=== PATIENT | female | born 1965 | race Caucasian/White ===

== ENCOUNTER 2017-03-28 07:43 | Inpatient (IN) | payer BC ==
[2017-03-28] MEDS ORDERED: NS 1,000 ML IV ONE ×3 (07:55→08:18)
--- NOTE | 2017-03-28 08:04 | EDPHY ---
H & P Time Seen by Provider: 03/28/17 07:55 HPI/ROS: CHIEF COMPLAINT: Hypotension HISTORY OF PRESENT ILLNESS: The patient is a 51-year-old female with a history of pancreatic cancer with a biliary stent followed at the [facility]. She is currently undergoing chemotherapy with Dr. Birch. She was found by her this morning after having gone to the bathroom lying on the floor with feces on her legs and confused. She had a thready pulse and EMS was called. On arrival the patient's blood pressure for EMS was 78/54 heart rate was 110. They giving fluids and brought her here. Here she is answering all questions appropriately and is oriented x3. She states that she had a mild sore throat and chills last night. Her arrived and states that he had little bit of a flu like illness over the last few days. She also complained of a mild headache last night but does not have one today. No history of cardiac disease. She has not had a fever. Her states that her biliary stent has caused sepsis twice before. The most recent episode was 5 weeks ago. She completed oral antibiotics at home which we think are Levaquin. REVIEW OF SYSTEMS: Constitutional: See HPI EENTM: denies: blurred vision, double vision, nose congestion Respiratory: denies: cough, shortness of breath Cardiac: denies: chest pain, irregular heart rate, lightheadedness, palpitations Gastrointestinal/Abdominal: denies: abdominal pain, diarrhea, nausea, vomiting, blood streaked stools Genitourinary: denies: dysuria, frequency, hematuria, pain Musculoskeletal: denies: joint pain, muscle pain Skin: denies: lesions, rash, jaundice, bruising Neurological: Mild headache last night denies: numbness, paresthesia, tingling , dizziness, weakness Hematologic/Lymphatic: denies: blood clots, easy bleeding, easy bruising Immunologic/allergic: denies: HIV/AIDS, transplant EXAM: GENERAL: Lethargic and slightly pale, mentating normally, hypotensive HEAD: Atraumatic, normocephalic. EYES: Pupils equal round and reactive to light, extraocular movements intact, sclera anicteric, conjunctiva are normal. ENT: TMs normal, nares patent, oropharynx clear without exudates. Moist mucous membranes. NECK: Normal range of motion, supple without lymphadenopathy or JVD. LUNGS: Breath sounds clear to auscultation bilaterally and equal. No wheezes rales or rhonchi. HEART: Regular rate and rhythm, slightly tachycardic without murmurs, rubs or gallops. ABDOMEN: Soft, nontender, normoactive bowel sounds. No guarding, no rebound. No masses appreciated. BACK: No CVA tenderness, no spinal tenderness, step-offs or deformities EXTREMITIES: Stool on legs, Normal range of motion, no pitting or edema. No clubbing or cyanosis. NEUROLOGICAL: Cranial nerves II through XII grossly intact. Normal speech, normal gait. 5/5 strength, normal movement in all extremities, normal sensation PSYCH: Fatigued, SKIN: Warm, dry, normal turgor, no visible rashes or lesions. Source: Patient, Family, EMS Exam Limitations: No limitations - Medical/Surgical History Hx Asthma: No Hx Chronic Respiratory Disease: No Hx Diabetes: No Hx Cardiac Disease: No Hx Renal Disease: No Hx Cirrhosis: No Hx Alcoholism: No Other PMH: Pancreatic cancer, biliary stent - Family History Significant Family History: No pertinent family hx - Social History Smoking Status: Never smoked Alcohol Use: Sober Drug Use: None Constitutional: Initial Vital Signs Temperature (C) 37 C 03/28/17 07:49 Heart Rate 102 H 03/28/17 07:49 Respiratory Rate 16 03/28/17 07:49 Blood Pressure 55/41 L 03/28/17 07:49 O2 Sat (%) 100 03/28/17 07:49 O2 Delivery Mode Nasal Cannula O2 (L/minute) 1 Allergies/Adverse Reactions: No Known Drug Allergies Allergy (Verified 03/28/17 08:20) Home Medications: Medication Instructions Recorded Aspirin [Aspirin 81mg (*)] 81 mg PO DAILY 03/28/17 Cholecalciferol Vit D3 [Vitamin D3 5,000 units PO DAILY 03/28/17 (*)] Dexamethasone [Decadron 4 MG (*)] 4 mg PO BID 03/28/17 Diphenoxylate HCl/Atrop Sulf 1 tab PO QID PRN 03/28/17 [Lomotil Tab (*)] Docusate Sodium [Colace 100 MG (*)] 100 mg PO DAILY PRN 03/28/17 Gabapentin [Neurontin 300 MG (*)] 300 mg PO TID 03/28/17 Granisetron [Sancuso] 1 each TD Q7D 03/28/17 LORazepam [Ativan (*)] 0.5 mg PO HS 03/28/17 LORazepam [Ativan (*)] 0.5 mg PO Q6-8PRN PRN 03/28/17 Lipase/Protease/Amylase [Katie Engel 2 each PO QID 03/28/17 36,000 Units Capsule] Lipase/Protease/Amylase [Katie Engel 3 each PO TIDMEAL 03/28/17 36,000 Units Capsule] Loperamide HCl [IMODIUM A-D] 5 ml PO DAILY PRN 03/28/17 Magic Mouth Wash 10 ml PO QID 03/28/17 Nystatin Susp [Mycostatin Oral 5 ml PO QID 03/28/17 Liquid] Prochlorperazine Maleate 10 mg PO Q6HRS PRN 03/28/17 [Compazine 10mg (*)] morphINE SR [Ms Contin/Oramorph 15 15 mg PO BID 03/28/17 mg (*)] oxyCODONE IR [Oxycodone Ir (*)] 5 mg PO DAILY PRN 03/28/17 Medical Decision Making - Diagnostics EKG Interpretation: An EKG obtained and was read and documented in trace view. Please see trace view for full reading and report. Sinus tachycardia slight ST depression in inferior leads A repeat EKG obtained and was read and documented in trace view. Please see trace view for full reading and report. Sinus rhythm, no acute ischemic changes Procedures: Procedure: Central line placement. Indication: Hypotension, severe sepsis. Verbal informed consent was obtained, with the risks explained to include but not be limited to bleeding, infection, and collapsed lung. A timeout was observed and patients identity and correct procedure location confirmed. Full maximal sterile barrier technique was uses including cap, gown, sterile gloves, large sheet, hand washing and chlorhexidine prep. The area anesthetized with 1 % lidocaine. The left IJ was punctured with a 19 gauge finder needle, under ultrasound guidance, then a triple-lumen was placed using standard Seldinger technique. There were no complications. Blood return low pressure, dark blood. Patient tolerated procedure well. CXR results: Curled an subclavian. X-ray was interpreted by myself. The procedure was performed by myself. Procedure: Central line placement. Indication: Hypotension. Verbal informed consent was obtained, with the risks explained to include but not be limited to bleeding, infection, and collapsed lung. A timeout was observed and patients identity and correct procedure location confirmed. Full maximal sterile barrier technique was uses including cap, gown, sterile gloves, large sheet, hand washing and chlorhexidine prep. The area anesthetized with 1 % lidocaine. The left subclavian was punctured with a 19 gauge finder needle, then a triple-lumen was placed using standard Seldinger technique. There were no complications. Blood return low pressure, dark blood. Patient tolerated procedure well. CXR results: Central line in place. X-ray was interpreted by myself. The procedure was performed by myself. ED Course/Re-evaluation: 8:30 a.m. the patient remains hypotensive after fluid bolus and 56/42. Her heart rate has improved from 110 to 98. We will continue to bolus fluids. I will also start her on Levophed and declared severe sepsis and sent a repeat lactate. The patient has a port in place. We spoke with the ICU and verified that this is safe to use for pressors. At this point patient and family is declining central line. 9:30 a.m. the patient's central line curved into her subclavian. I will remove it. Family is not sure if they want another. Dr. Aguilar is talking to them now. 9:50 a.m. the patient's central line was pulled by nursing staff and pressure held. Dr. Aguilar has evaluated the patient agrees with the plan thus far. We do not have an obvious source for infection although we suspect her biliary stent. She does not have elevated liver function tests. 10:14 a.m. while discussing the risks of subclavian central line patient and family decided that they do not want a central line. We had discussed a PICC line with them earlier and they prefer this option. The patient has stabilized to some degree so we will try this Differential Diagnosis: Partial list of the Differential diagnosis considered include but were not limited to; sepsis, urinary tract infection, biliary stent infection and although unlikely based on the history and physical exam, I also considered head injury, acute coronary disease. Critical Care Time: Critical care time spent by me, Dr. Avelar exclusive with this patient was 45 minutes, exclusive of the PA time exclusive of procedures. The organ system that was at risk was cardiovascular and I gave IV fluids, antibiotics, consultations and admission to prevent worsening of the patient's condition - Data Points Laboratory Results: Laboratory Results 03/28/17 08:03 03/28/17 08:03 03/28/17 08:03 Platelet Estimate DECREASED L (ADEQ) Microbiology Results: MICROBIOLOGY 03/28/17 08:03 Blood Blood Culture - Preliminary Gram Neg Robert Lactose Roving Carrier 03/28/17 08:03 Blood Blood Panel (PCR) - Final Klebsiella Pneumoniae Medications Given: Acetaminophen (Tylenol) 650 mg PO Q4HRS PRN PRN Reason: Pain, Mild/Fever, Can Take PO Stop: 09/24/17 09:48 Last Admin: 03/29/17 14:59 Dose: 650 mg Filgrastim-Sndz (Zarxio) 300 mcg SC DAILY AT 2PM RAVEN Stop: 09/24/17 13:59 Last Admin: 03/29/17 14:06 Dose: 300 mcg Gabapentin (Neurontin) 300 mg PO TID RAVEN Stop: 09/24/17 15:59 Last Admin: 03/29/17 16:10 Dose: 300 mg Sodium Chloride (Ns) 1,000 mls @ 150 mls/hr IV CONT RAVEN Stop: 09/24/17 09:59 Last Admin: 03/29/17 14:59 Dose: 1,000 mls Piperacillin/Tazobactam/Dextrose (Zosyn 3.375 Gm (Premix)) 50 mls @ 100 mls/hr IV Q6HRS RAVEN PRN Reason: Protocol Stop: 04/27/17 13:59 Last Admin: 03/29/17 17:07 Dose: 50 mls Norepinephrine/Sodium Chloride (Norepinephrine 8 Mcg/Ml (Premix)) 500 mls @ 0 mls/hr IV CONT RAVEN; Titrate PRN Reason: Protocol Stop: 09/24/17 20:59 Last Admin: 03/29/17 02:39 Dose: 500 mls Loperamide HCl (Imodium) 2 mg PO QID PRN PRN Reason: Diarrhea/Loose Stools Stop: 09/24/17 20:38 Last Admin: 03/29/17 12:42 Dose: 2 mg Lorazepam (Ativan) 0.5 mg PO Q6 PRN PRN Reason: NAUSEA/VOMTING Stop: 09/24/17 14:47 Last Admin: 03/28/17 21:03 Dose: 0.5 mg Miscellaneous Medication (Magic Mouth Wash) 10 ml PO QID [facility] Stop: 09/24/17 15:59 Last Admin: 03/29/17 16:11 Dose: Not Given Miscellaneous Medication (Lipase/Protease/Amylase [Katie Engel 36,000 Units Capsule ]) 3 each PO TIDMEAL RAVEN Stop: 09/25/17 08:59 Last Admin: 03/29/17 12:46 Dose: 3 cap Miscellaneous Medication (Lipase/Protease/Amylase [Creon Dr 36,000 Units Capsule ]) 2 each PO QID PRN PRN Reason: SNACKS Stop: 09/25/17 11:04 Last Admin: 03/29/17 16:11 Dose: 2 cap Miscellaneous Medication (Granisetron [Sancuso]) 1 each TD Q7D [facility] Stop: 09/25/17 11:59 Last Admin: 03/29/17 12:00 Dose: 1 patch Morphine Sulfate (Ms Contin/Oramorph) 15 mg PO BID [facility] Stop: 04/07/17 20:59 Last Admin: 03/29/17 08:09 Dose: 15 mg Nystatin (Mycostatin Oral Liquid) 500,000 unit PO QID [facility] Stop: 04/27/17 17:44 Last Admin: 03/29/17 16:10 Dose: 500,000 unit Discontinued Medications Dexamethasone (Decadron Injection) 10 mg IVP ONCE ONE Stop: 03/28/17 08:49 Last Admin: 03/28/17 09:36 Dose: 10 mg Dexamethasone (Decadron) 4 mg PO BID [facility] Stop: 09/24/17 20:59 Last Admin: 03/29/17 13:19 Dose: Not Given Sodium Chloride (Ns) 1,000 mls @ 0 mls/hr IV ONCE ONE; Wide Open PRN Reason: Protocol Stop: 03/28/17 07:56 Last Admin: 03/28/17 07:55 Dose: 1,000 mls Sodium Chloride (Ns) 1,000 mls @ 0 mls/hr IV ONCE ONE PRN Reason: Wide Open Stop: 03/28/17 08:06 Last Admin: 03/28/17 08:05 Dose: 1,000 mls Sodium Chloride (Ns) 1,000 mls @ 0 mls/hr IV EDNOW ONE; Wide Open PRN Reason: Protocol Stop: 03/28/17 08:19 Last Admin: 03/28/17 08:21 Dose: 1,000 mls Levofloxacin/Dextrose (Levaquin 750 Mg (Premix)) 150 mls @ 100 mls/hr IV EDNOW ONE PRN Reason: Protocol Stop: 03/28/17 09:52 Last Admin: 03/28/17 08:29 Dose: 150 mls Norepinephrine/Sodium Chloride (Norepinephrine 8 Mcg/Ml (Premix)) 500 mls @ 0 mls/hr IV EDNOW ONE; Titrate PRN Reason: Protocol Stop: 03/28/17 08:24 Last Admin: 03/28/17 08:50 Dose: 500 mls Sodium Chloride (Ns) 1,700 mls @ 3,400 mls/hr 30 ml/kg infuse over 30 min ( 1700 ml) IV EDNOW ONE PRN Reason: Protocol Stop: 03/28/17 08:52 Last Admin: 03/28/17 08:58 Dose: Not Given Piperacillin/Tazobactam/Dextrose (Zosyn 3.375 Gm (Premix)) 50 mls @ 100 mls/hr IV EDNOW ONE PRN Reason: Protocol Stop: 03/28/17 09:08 Last Admin: 03/28/17 09:43 Dose: 50 mls Vancomycin/Sodium Chloride (Vancomycin 1 Gm (Premix)) 250 mls @ 250 mls/hr IV Q12H [facility]EN PRN Reason: Protocol Stop: 04/27/17 09:59 Last Admin: 03/29/17 10:43 Dose: Not Given Calcium Gluconate 2 gm/ (Dextrose) 70 mls @ 140 mls/hr IV ONCE ONE Stop: 03/28/17 19:18 Last Admin: 03/28/17 19:47 Dose: 70 mls Miscellaneous Medication (Lipase/Protease/Amylase [Katie Engel 36,000 Units Capsule ]) 2 each PO QID [facility] Stop: 09/24/17 20:59 Last Admin: 03/29/17 05:48 Dose: 2 cap Departure - Departure Disposition: [facility] Inpatient Acute Clinical Impression: Septic shock Condition: Critical
[2017-03-28 08:15] LABS: % IMMATURE GRANULYOCYTES 1.9 % (0.0-1.1); ABSOLUTE IMMATURE GRANULOCYTES 0.02 10^3/uL (0.00-0.10); ABSOLUTE NRBC COUNT 0.02 10^3/uL (0-0.01); ADD DIFF? NO; ADD MORPH? YES; ADD SCAN? NO; ATYPICAL LYMPHOCYTE FLAG 0 (0-99); FRAGMENT RBC FLAG 0 (0-99); HEMATOCRIT 27.4 % (38.0-47.0); HEMOGLOBIN 8.7 g/dL (12.6-16.3); LEFT SHIFT FLG 70 (0-99); LIPEMIA HEMOLYSIS FLAG 80 (0-99); MEAN CELL HEMOGLOBIN CONCENTR. 31.8 g/dL (32.4-36.7); MEAN CELL VOLUME 91.3 fL (81.5-99.8); MEAN PLATELET VOLUME 10.7 fL (8.7-11.7); PLATELET CLUMPS FLAG 20 (0-99); PLATELET COUNT 94 10^3/uL (150-400); RED CELL DISTRIBUTION WIDTH 16.4 % (11.5-15.2)
--- NOTE | 2017-03-28 08:20 | CPEKG ---
Heart Rate: 101 RR Interval: 594 P-R Interval: 120 QRSD Interval: 86 QT Interval: 360 QTC Interval: 467 P [place]: 68 QRS [place]: 27 T Wave [place]: 53 EKG Severity - ABNORMAL ECG - EKG Impression: SINUS TACHYCARDIA EKG Impression: CONSIDER POSTERIOR INFARCT Electronically Signed By: Kolby Avelar 28-Mar-2017 08:45:29
[2017-03-28] MEDS ORDERED: NS 1,700 ML IV ONE (08:23)
[2017-03-28] MEDS ORDERED: NOREPINEPHRINE/NS 500 ML IV ONE (08:23)
[2017-03-28 08:24] LABS: INR 1.49 (0.83-1.16)
[2017-03-28 08:25] LABS: APTT 27.2 SEC (23.0-38.0)
[2017-03-28 08:32] LABS: ANION GAP 9 mEq/L (8-16); CALCIUM 6.8 mg/dL (8.5-10.4); CARBON DIOXIDE 19 mEq/l (22-31); CHLORIDE 107 mEq/L (97-110); GLOMERULAR FILTRATION RATE 59; GLUCOSE 76 mg/dL (70-100); POTASSIUM 3.1 mEq/L (3.5-5.2); SODIUM 135 mEq/L (134-144)
[2017-03-28] MEDS ORDERED: PIPERACILLIN/TAZO 3.375 GM/DEX 50 ML IV ONE (08:39)
[2017-03-28 08:45] LABS: NRBC-AUTO% 1.9 % (0.0-0.2)
[2017-03-28] MEDS ORDERED: DEXAMETHASONE 10 MG/ML VIAL IVP ONE (08:48)
[2017-03-28 09:10] LABS: LACGHOST ORDER
--- NOTE | 2017-03-28 09:12 | CPEKG ---
Heart Rate: 96 RR Interval: 625 P-R Interval: 120 QRSD Interval: 80 QT Interval: 360 QTC Interval: 455 P [place]: 65 QRS [place]: 19 T Wave Raymond: 51 EKG Severity - ABNORMAL ECG - EKG Impression: SINUS RHYTHM EKG Impression: PROBABLE POSTERIOR INFARCT Electronically Signed By: Kolby Avelar 28-Mar-2017 09:45:57
[2017-03-28 09:44] LABS: ALBUMIN 2.2 g/dL (3.5-5.0); BILIRUBIN-CONJUGATED 0.7 mg/dL (0.0-0.5); BILIRUBIN-UNCONJUGATED 0.3 mg/dL (0.0-1.1); TOTAL PROTEIN 3.8 g/dL (6.3-8.2)
[2017-03-28] MEDS ORDERED: ONDANSETRON DISINTEGRATING 4 MG TAB PO PRN (09:49)
[2017-03-28] MEDS ORDERED: ONDANSETRON 4 MG/2 ML VIAL IVP PRN (09:49)
[2017-03-28] MEDS ORDERED: ACETAMINOPHEN 325 MG TAB ONE (10:55)
[2017-03-28] MEDS ORDERED: VANCOMYCIN 1 GM/NS 250 ML BAG IV ONE (11:01)
[2017-03-28] MEDS: VANCOMYCIN HCL/NORMAL SALINE 250 ML IV SCH ×2 (11:08→21:41)
--- NOTE | 2017-03-28 11:57 | GHP ---
[f rep st] HISTORY AND PHYSICAL DATE OF ADMISSION: 03/28/2017 This patient is a 51-year-old female with a history of metastatic pancreatic cancer that was diagnose d in April 2016, secondary to abdominal pain. She has a metal stent in her biliary tree, and is cu rrently receiving FOLFIRI chemotherapy with Dr. Zoran Birch. Her biliary stent was placed at [facility]. The patient has had a couple of episodes over the last month. She had a right upper quadrant pain an d fever, and had been treated with oral levofloxacin, and has improved. The last was a couple of wee ks ago. Yesterday, she had some increased pain in her right upper quadrant, took an oxycodone, which is uncommon for her, and then overnight she recalls feeling very chilled overnight and getting up to go to the bathroom, and then lying down on the floor. Her found her this morning incontinen t of stool, and confused, and brought her in here. Her initial presenting vitals show very low blood pressures of 56/32 with a pulse of greater than 100. She has been afebrile here, although she is wa rm to the touch. The patient said she had been eating and drinking normally prior to overnight. Her last bowel moveme nt was the day prior. She has not had jaundice. There was some discussion. The ER nurse may have n oticed some light-colored stool on her clothes, but has not noticed any tiffany-colored stools or Coca-C henry-colored urine. She has not had any procedures to open up her stent; it was placed, it sounds lik e, shortly after diagnosis. She has not had nausea or vomiting. She does not have chest pain or bindu rtness of breath. She maybe has a degree of urinary frequency and urgency. REVIEW OF SYSTEMS: Complete 10-point review of systems conducted, and negative except as noted in th e HPI. PAST MEDICAL HISTORY: Metastatic pancreatic cancer. ALLERGIES: No known drug allergies. HOME MEDICATION: Her reconciliation is pending, but includes Colace, aspirin, MS Contin, p.r.n. oxyc odone, and outpatient chemotherapy. SOCIAL HISTORY: No tobacco, no alcohol. Lives in [place]. and daughter at the bedside. FAMILY HISTORY: Reviewed and unremarkable. PHYSICAL EXAMINATION: PRESENTING VITALS: Temp 37, blood pressure 55/41, pulse 102, breathing 16 parth es a minute, 100% on 4 L. When I see the patient, her blood pressure is 78/55 and she is mentating a nd alert, and her confirms that her mental status is close to her baseline. It sounds like o n her systolic blood pressures have been running in the 80s since the start of chemotherapy. GENERAL : No acute distress. Chronically ill appearing. HEENT: Sclerae anicteric. Oropharynx clear. Muc ous membranes are dry. NECK: Supple without lymphadenopathy or JVD. LUNGS: Clear to auscultation anterolaterally. HEART: S1, S2. Tachycardic. ABDOMEN: Soft. There is no rebound or guarding. B owel sounds are hypoactive, but present. There is a Castañeda sign. LOWER EXTREMITIES: Without edema. Calves are nontender. SKIN: Without rash. NEUROLOGIC: Grossly nonfocal. IMAGING STUDIES: Chest x-ray, interpreted by me: This shows atelectasis versus questionable infiltr ate; favor atelectasis. EKG, interpreted by me: It shows sinus at 101 with normal axis and intervals. There is early R-wave progression. There is also an S wave in lead V1. We have no prior for comparison. LABORATORY DATA: Sodium 135, potassium 3.1, chloride 107, bicarb 19, BUN 30 creatinine 1.0, glucose 76, calcium 6.8, which is low. Bilirubin is 1.08; conjugated, it is slightly high at 0.7. AST is 40 , ALT is 85, alk phos is 100. The following numbers are in our system: Her bilirubin has been highe r, but almost a year ago. Albumin is low at 2.2. Venous lactate initially 3.1; it is down to 2.3; r epeat is pending. INR is 1.5. White count is 1, and this is down from 5 five days ago. She is neut ropenic with a neutrophil count of 300. Platelet count is 94. Again, this is new. I discussed the case with Dr. Kolby Avelar. ASSESSMENT AND PLAN: This is a 51-year-old female with metastatic pancreatic cancer, who presents wi th apparent sepsis. 1. Sepsis. The patient has neutropenia. Potential source is right upper quadrant. And hypotension , elevated venous lactate. She received volume resuscitation. She is on phenylephrine. We will fol low. The presumed source is the right upper quadrant. 2. Question of cholangitis. The patient has a history of cholangitis and a Castañeda sign. However, h er relatively normal LFTs argue against significant biliary obstruction, which is typically the begin bernardo of sepsis. We will treat her with vancomycin and Zosyn, and perform right upper quadrant imagin g. I will ask Gastroenterology to see her to render an opinion about the likelihood of cholangitis. 3. Metastatic pancreatic cancer. Certainly this will interrupt her chemotherapy. Will let Oncology know she is here, and they will follow along with you while she is here. 4. Neutropenia, presumed secondary to sepsis and/or chemotherapy. Will follow. 5. Question of pulmonary embolism. This presentation could be significant with a massive pulmonary embolism. I think a CT scan of the chest is indicated once more reliable central access has been obt ained. 6. Hypotension. This is presumed secondary to sepsis. We will work to rule out pulmonary embolism. 7. Thrombocytopenia. We will hold her aspirin. Again, sepsis versus chemotherapy. To rule out dis seminated intravascular coagulation. I will check a fibrinogen level. 8. Prophylaxis. Pharmacologic prophylaxis currently contraindicated, given thrombocytopenia and mil d coagulopathy. 9. Code status: Full. 10. Disposition: Intensive care unit. /[id number]/MODL
[2017-03-28] MEDS ORDERED: FILGRASTIM-SNDZ 300 MCG/0.5 ML SYR SC SCH (12:30)
--- NOTE | 2017-03-28 13:22 | GCON ---
[f rep st] CONSULTATION ONCOLOGY CONSULTATION DATE OF CONSULTATION: 03/28/2017 HISTORY OF PRESENT ILLNESS: The patient is a pleasant 51-year-old female who was diagnosed with meta static pancreatic carcinoma in April 2016. She had been treated initially with palliative FOLFIRIN OX. Due to multiple issues, her oxaliplatin has been held beginning in November of this year. Her most r ecent dose of treatment (5-fluorouracil, leucovorin, irinotecan) was given on March 23, 2015. Pattie turcios did not receive growth factor medication at that time. The patient has had an initial response to therapy. She has an indwelling biliary stent which was pl aced at the time of her diagnosis in April of last year. She has had approximately 3 episodes of c holangitis treated in the outpatient setting with Jarek. The patient evidently became confused last evening and was brought to the emergency department this m orning by her parents. When seen this afternoon, she is feeling much better and more coherent. She denies abdominal pain. She did report having shaking chills last evening. She reports mild right up per quadrant pain. An ultrasound done today reveals diffuse gallbladder wall thickening with pericho lecystic fluid suggesting acalculous cholecystitis. There is no evidence of intrahepatic ductal dila tation and her biliary stent is visualized. Hepatic metastases are present. She has been started on IV antibiotic therapy and is being given fluid resuscitation. Surgical consu ltation has been requested and she is due for a HIDA scan later today. PAST MEDICAL HISTORY: Essentially unremarkable prior to her diagnosis of pancreatic cancer. PAST SURGICAL HISTORY: Remarkable only for wisdom tooth extraction and liver biopsy. Also, biliary stent placement April 2017. REVIEW OF SYSTEMS: As above. PHYSICAL EXAM: GENERAL: Patient is resting comfortably in bed. She is in no acute distress. There is no evidence of scleral icterus. HEART: Regular, without murmur. LUNGS: Clear bilaterally. AB DOMEN: Soft. There is minimal right upper quadrant tenderness without guarding or rebound. No palp able mass. No distention. Bowel sounds normoactive. No extremity swelling or edema. Patient alert , oriented, and appropriate. Gallbladder imaging results as outlined above. Chest x-ray reveals no infiltrate. LABORATORY STUDIES: White count 1.03, hemoglobin 8.7, hematocrit 27.4, platelet count is 94,000, abs olute neutrophil count is 340. Sodium 135, potassium 3.1, chloride 107, bicarb 19, BUN 30, creatinin e 1.0, bilirubin 1.0, AST 40, ALT 85, alk phos 100. IMPRESSION: 1. Metastatic pancreatic carcinoma (patient currently receiving 5-fluorouracil, leucovorin, irinotec an, last dose given March 23, 2017). 2. Indwelling biliary stent secondary to #1. 3. Episodes of recurrent cholangitis treated with outpatient Levaquin therapy. 4. Probable acalculous cholecystitis. 5. Febrile neutropenia. 6. Chemotherapy-induced anemia. The patient has been admitted to the hospital with biliary sepsis. It would appear that the source o f her sepsis is from the gallbladder as opposed to recurrent cholangitis. I suspect the lack of posi tive Castañeda sign may be due in part to her low white count and an impaired systemic inflammatory resp onse. She has a HIDA scan scheduled for later today and a surgical consultation has been requested. She will be treated with broad-spectrum antibiotics. She is receiving aggressive IV fluid resuscitat ion. Clinically, she has improved significantly since admission. Given that she has been admitted with pr esumed sepsis and is neutropenic, I will start her on G-CSF therapy 300 mcg daily until her neutrophi l count is greater than 1500. Her therapy will be placed on hold. I will notify Dr. Birch of her admission. Our service will co liliya to follow her. The above plan was discussed with the patient and her family members as well a s nursing and Dr. Aguilar of the hospitalist service. Total time for today's visit was approximately 40 minutes, of which greater than 50% was spent in cou nseling and care coordination. /[id number]/MODL
--- NOTE | 2017-03-28 15:41 | GCON ---
[f rep st] CONSULTATION REFERRING PHYSICIAN: Jordan Aguilar MD REASON FOR CONSULTATION: Possible biliary sepsis. HISTORY OF PRESENT ILLNESS: Patient is a pleasant 51-year-old female with a history of metastatic pa ncreatic cancer diagnosed back in April of 2016. She has metal stents placed in her biliary tree b y the interventional endoscopist done at [place]. She has had a number of infections in the stent s, and has been treated with oral antibiotics according to her and her . Last night, she was not feeling very well. She took oxycodone, it made her feel somewhat worse. She remembers having si gnificant chills and rigors where her teeth were chattering when she was coming to bed. This morning , her found her on the floor of the bathroom incontinent and confused. She was brought to [facility], and she had significant hypotension with a blood pressure of 56/32. Prior to yesterday s he was feeling pretty well. She was eating normally without any significant pain. She did not have any fevers, chills, or sweats until last night. She was not jaundiced. She did not have any increas ed abdominal pain. She has been treated with a sepsis protocol. This morning she is much improved. She does have mild abnormal labs with an ALT of 85, but her other liver enzymes are normal, and she does not have any increased bilirubin. She does have tenderness in the right upper quadrant, and her sepsis is likely thought of a biliary source. A sonogram performed this morning suggests possible c holecystitis with diffuse gallbladder wall thickening and some fluid around it. There is no intrahep atic biliary dilatation. They do notice the biliary stent and hepatic mets. I am now called to help evaluate possible biliary sepsis. PAST MEDICAL/SURGICAL HISTORY: She has had the stents placed and a port placed. She has metastatic pancreatic cancer. No other surgeries. FAMILY HISTORY: Denies any family history of cancers. Does not seem to be a cancer gene syndrome in her family. MEDICATIONS: At home include vitamin D, Creon, oxycodone, Ativan, dexamethasone, Colace, MS Kia, and she has outpatient chemotherapy. In hospital her medications are Tylenol p.r.n., Zarxio 300 mcg subcu at 2 p.m., Dilaudid p.r.n., MS Penny ontin 15 mg p.o. b.i.d., Zofran p.r.n., Zosyn 3.375 g IV q.6 hours, vancomycin 1 g IV q.12. She did get Decadron 20 mg IV push this morning at 8:48. She had Levaquin dose earlier. She was on norepine phrine initially, but she is not on it any more. ALLERGIES: No known drug allergies. SOCIAL HISTORY: She never smoked. She drinks alcohol very infrequently. She has not had alcohol fo r over a year. REVIEW OF SYSTEMS: A complete review of systems was performed, is negative other than noted in the H PI. PHYSICAL EXAMINATION: GENERAL: Well developed, ill female lying in her bed. She appears comfortabl e. VITAL SIGNS: Blood pressure is 80/55, pulse is 110. She has 16 respiratory rate. She is 98% on 1 L. Temperature is 38.5. EYES: Anicteric. LILA. EOMI. MOUTH: No lesions. NECK: Supple. No JVD. No lymphadenopathy. BACK: No spine tenderness. No CVA tenderness. LUNGS: Clear to auscult ation. CARDIAC: S1, S2. Tachy, regular rhythm. I do not appreciate rubs or gallops. ABDOMEN: Hira wel sounds are decreased frequency, normal pitch. Abdomen soft with tenderness in the right upper qu adrant. Minimal guarding. No rebound. EXTREMITIES: No cyanosis, clubbing. NEUROLOGIC: Cranial n erves intact. Nonfocal. SKIN: No stigmata of advanced liver disease. No rashes. LABORATORY DATA: From today: Sodium 135, potassium 3.1, chloride 107, bicarb 19, BUN 30, creatinine 1.0, calcium 6.8. Total bilirubin 1.0, AST 40, ALT 85, meryl phos 100, total protein 3.8, albumin 2. 2. WBC 1.03, hemoglobin 8.7, hematocrit 27.4, platelet count 94,000. Her pro time is 18.0, INR is 1 .49, PTT is 27.2. A chest x-ray performed at 7:55 this morning showed mild central perihilar bronchial wall thickening with some questionable left basilar subsegmental atelectasis versus minimal infiltrate. Abdominal ultrasound from 9:47 this morning: Diffuse gallbladder wall thickening with pericholecysti c fluid suggesting acalculous acute cholecystitis, biliary stent without definite intrahepatic biliar y ductal dilatation, hepatic metastases, no hydronephrosis. ASSESSMENT: 1. Presumed sepsis, unclear source, likely biliary, either occluded stent with ascending cholangitis or cholecystitis; I favor the former. 2. Metastatic pancreatic cancer. 3. Biliary stents for pancreatic cancer. 4. Hypotension related to sepsis. 5. Abnormal imaging study, possible acalculous cholecystitis. 6. Chemotherapy-induced anemia, thrombocytopenia, and leukopenia. RECOMMENDATIONS: 1. Continue broad-spectrum antibiotics. 2. Order HIDA scan which should evaluate both possible stent occlusion as well as acalculous cholecy stitis. 3. Continue supportive care. 4. Agree with G-CSF therapy. 5. Further recommendations to follow up with the above and clinical course. I do think that the patient's infection is likely biliary source. I think an ascending cholangitis f rom malfunctioning stent is more likely. The gallbladder could be dilated related to malfunctioning stents. Interestingly, her only mild LFT abnormalities are ALT. I would expect significantly more a bnormalities with occluded stents. Nevertheless, I think that is still what is occurring. If the HID A scan is read as normal with both small bowel opacification and gallbladder opacification, we will n eed to look for other sources. It still is possible that the stent is occluded despite an opacificat ion of the small bowel partially occluded. Thank you very much for allowing me to participate in patient's health care. Do not hesitate to call me with any questions. Copy requested to: Dr. Birch /[id number]/MODL
[2017-03-28] MEDS: FILGRASTIM-SNDZ 300 MCG/0.5 ML SYR SC SCH (16:41)
[2017-03-28] MEDS: PIPERACILLIN/TAZO 3.375 GM/DEX 50 ML IV SCH ×2 (16:46→17:27)
[2017-03-28] MEDS: GABAPENTIN 300 MG CAP PO SCH ×2 (16:54→20:34)
[2017-03-28 17:09] LABS: IONIZED CALCIUM 1.03 MMOL/L (1.12-1.30)
[2017-03-28] MEDS: NYSTATIN SUSP 500000 UNIT/5 ML UDCUP PO SCH ×2 (18:28→20:34)
[2017-03-28] MEDS ORDERED: CALCIUM GLUCONATE 2 GM in D5W 50 ML IV ONE (18:49)
[2017-03-28 19:46] LABS: MIXED VENOUS O2 SATURATION 95 % (65-75)
[2017-03-28 20:23] LABS: ANION GAP 9 mEq/L (8-16); CALCIUM 7.3 mg/dL (8.5-10.4); CARBON DIOXIDE 17 mEq/l (22-31); CHLORIDE 115 mEq/L (97-110); CREATININE 0.9 mg/dL (0.6-1.0); GLOMERULAR FILTRATION RATE > 60; GLUCOSE 157 mg/dL (70-100); POTASSIUM 4.2 mEq/L (3.5-5.2); SODIUM 141 mEq/L (134-144)
[2017-03-28] MEDS: Lipase/Protease/Amylase [Creon Dr 36,000 Units Capsule] PO SCH ×2 (20:33)
[2017-03-28] MEDS: morphINE SR 15 MG TAB PO SCH (20:34)
[2017-03-28] MEDS: DEXAMETHASONE 4 MG TAB PO SCH (20:34)
[2017-03-28] MEDS: LOPERAMIDE HCL 2 MG CAP PO PRN (21:03)
[2017-03-28] MEDS: LORazepam 0.5 MG TAB PO PRN (21:03)
[2017-03-28] MEDS: ACETAMINOPHEN 325 MG TAB PO PRN (23:32)
--- NOTE | 2017-03-28 23:58 | GCON ---
[f rep st] CONSULTATION DATE OF CONSULTATION: 03/28/2017 REFERRING PHYSICIAN: Jordan Aguilar MD REASON FOR CONSULTATION: Acute cholecystitis. HISTORY OF PRESENT ILLNESS: The patient is a 51-year-old woman, who has a history of metastatic panc reatic cancer that was diagnosed in April 2016. She is treated with by Dr. Zoran Birch, as well a s by Dr. Amarilys Gruber at the pancreatic team at the [facility]. She has a metal stent in her biliar y tree, which is not been changed. She has been receiving chemotherapy and been doing fairly well. She reports that over the past month she has had several episodes of right upper quadrant pain and fe saroj. She has responded well to antibiotics. She was found this morning incontinent of stool, [facility] ed, and presented with sepsis. She received her last chemotherapy on . She is neutropenic. She had an ultrasound obtained which showed a thickened gallbladder with pericholecystic fluid witho ut biliary ductal dilatation. She had a HIDA scan which showed the biliary stent is open and acute c holecystitis. Her liver function tests are improved compared to earlier this month. PAST MEDICAL HISTORY: Metastatic pancreatic cancer. SOCIAL HISTORY: She lives in [place]. No tobacco or alcohol use. ALLERGIES: No known drug allergies. HOME MEDICATION: Reconciled on [employer]. FAMILY HISTORY: Not contributing to acute cholecystitis. REVIEW OF SYSTEMS: Weakness, alternating constipation/diarrhea. Otherwise, 10-point review of syste ms negative. PHYSICAL EXAMINATION: VITAL SIGNS: 37.5, 113, 81/54, 16, 94% on 1 L. GENERAL: Pleasant, well-nour ished woman. She appears in mild distress. She appears weak. She is cooperative. NEURO: [place] g well. HEENT: Normocephalic. No gross hearing deficits. Mucous membranes moist. Pupils equal an d round. No scleral icterus. LUNGS: Clear to auscultation bilaterally. No increased work of breat liliana. CARDIAC: Tachycardia. No peripheral edema. ABDOMEN: Her abdomen is soft. She has mild ten derness in the right upper quadrant. Bowel sounds are present. She is soft. MUSCULOSKELETAL: Norm al nails. PSYCH: Mood and affect normal. LABORATORY DATA: Results reviewed per HPI. IMPRESSION AND PLAN: The patient is a 51-year-old woman with metastatic pancreatic cancer and acute cholecystitis. I discussed the case with Dr. Aguilar, Dr. Butler, the medical oncologist on-call, as well as her medical oncologist at the [facility], Dr. Amarilys Gruber. Since she has been doing well on her chemotherapy over the year, it is not unreasonable to perform a cholecystectomy. However at t his time while she is so neutropenic, I do not think that this is appropriate. I recommend that she continue antibiotics and we monitor her. If she worsens, then we will need to take her to the operat ing room. However, if her white blood cell count can be improved, that would be beneficial. The ris ks and benefits of the surgery, including but not limited to, stroke, heart attack, , infection, bleeding, damage to common bile duct, and possibly finding more cancer were all discussed. We will readdress this tomorrow. Thank you for the opportunity to be involved with her care. /[id number]/MODL
[2017-03-29] MEDS: PIPERACILLIN/TAZO 3.375 GM/DEX 50 ML IV SCH ×5 (02:30→23:30)
[2017-03-29] MEDS: NOREPINEPHRINE/NS 500 ML IV SCH (02:39)
[2017-03-29] MEDS: NS 1,000 ML IV SCH ×4 (02:40→22:17)
[2017-03-29 03:15] LABS: COLOR YELLOW; LEUKOCYTE ESTERASE,URINE 2+ (NEGATIVE); NITRITE,URINE NEGATIVE (NEGATIVE)
[2017-03-29 03:27] LABS: BACTERIA TRACE /hpf (NONE SEEN); MUCUS TRACE /lpf (NONE-1+); WBC,URINE 25-50 /hpf (0-3)
[2017-03-29 04:46] LABS: ADD DIFF? YES; ADD MORPH? NO; ATYPICAL LYMPHOCYTE FLAG 0 (0-99); FRAGMENT RBC FLAG 0 (0-99); HEMATOCRIT 26.3 % (38.0-47.0); HEMOGLOBIN 8.5 g/dL (12.6-16.3); LIPEMIA HEMOLYSIS FLAG 80 (0-99); MEAN CELL HEMOGLOBIN 29.2 pg (27.9-34.1); MEAN CELL HEMOGLOBIN CONCENTR. 32.3 g/dL (32.4-36.7); MEAN CELL VOLUME 90.4 fL (81.5-99.8); PLATELET CLUMPS FLAG 0 (0-99); PLATELET COUNT 117 10^3/uL (150-400); RED BLOOD CELL COUNT 2.91 10^6/uL (4.18-5.33); RED CELL DISTRIBUTION WIDTH 16.6 % (11.5-15.2)
[2017-03-29 04:51] LABS: ALANINE AMINOTRANSFERASE 94 IU/L (9-52); ALBUMIN 2.2 g/dL (3.5-5.0); ALKALINE PHOSPHATASE 87 IU/L (38-126); ANION GAP 7 mEq/L (8-16); ASPARTATE AMINOTRANSFERASE 30 IU/L (14-46); BILIRUBIN,TOTAL 1.1 mg/dL (0.1-1.4); CALCIUM 8.1 mg/dL (8.5-10.4); CARBON DIOXIDE 19 mEq/l (22-31); CHLORIDE 114 mEq/L (97-110); CREATININE 0.9 mg/dL (0.6-1.0); GLOMERULAR FILTRATION RATE > 60; GLUCOSE 175 mg/dL (70-100); SODIUM 140 mEq/L (134-144); TOTAL PROTEIN 4.3 g/dL (6.3-8.2)
[2017-03-29 04:53] LABS: ADD SCAN? NO; LEFT SHIFT FLG 300 (0-99)
[2017-03-29] MEDS: NYSTATIN SUSP 500000 UNIT/5 ML UDCUP PO SCH ×4 (05:16→21:48)
[2017-03-29] MEDS: Lipase/Protease/Amylase [Creon Dr 36,000 Units Capsule] PO SCH ×6 (05:17→18:40)
[2017-03-29 06:59] LABS: PLATELET ESTIMATE DECREASED (ADEQ)
[2017-03-29 07:02] LABS: TOXIC GRANULATION PRESENT
[2017-03-29] MEDS: ACETAMINOPHEN 325 MG TAB PO PRN ×3 (07:37→19:48)
[2017-03-29] MEDS: GABAPENTIN 300 MG CAP PO SCH ×3 (08:09→21:48)
[2017-03-29] MEDS: morphINE SR 15 MG TAB PO SCH ×2 (08:09→21:48)
[2017-03-29] MEDS: LOPERAMIDE HCL 2 MG CAP PO PRN ×3 (08:09→20:16)
[2017-03-29] MEDS: DEXAMETHASONE 4 MG TAB PO SCH ×2 (08:09→13:19)
[2017-03-29 09:21] LABS: PLATELET ESTIMATE DECREASED (ADEQ)
[2017-03-29] MEDS: VANCOMYCIN HCL/NORMAL SALINE 250 ML IV SCH (10:43)
[2017-03-29] MEDS ORDERED: Lipase/Protease/Amylase [Creon Dr 36,000 Units Capsule] PO PRN (11:05)
--- NOTE | 2017-03-29 11:47 | SOAPPROG ---
CECE Progress Note Assessment/Plan: Assessment:Plan: 1) Cholecystitis - plan for surgery later this week. I will ask for an IOC to confirm the stents are wide open 2) genetics - i will ask her to sign release of info and have her genetic evaluation reviewed by our genetic clinic, Dr. Palm I will sign off for now recall if I can be of assistance Thank you 03/29/17 11:44 Subjective: cc- cholecystitis, panc cancer with biliary stents pt feeling weak eating breakfast w/o much issue answered her and her husbands questions Objective: Vital Signs Temp Pulse Resp BP Pulse Ox 36.6 C 80 23 H 113/64 95 03/29/17 08:00 03/29/17 11:00 03/29/17 11:00 03/29/17 11:00 03/29/17 11:00 Laboratory Results 03/29/17 04:30 03/29/17 04:30 03/28/17 03/29/17 03/30/17 05:59 05:59 05:59 Intake Total 5031 Output Total 1450 Balance 3581 PT 18.0 SEC (12.0-15.0) H 03/28/17 08:03 INR 1.49 (0.83-1.16) H 03/28/17 08:03 A+Ox3 CTA S1S2 +BS, soft ruq tenderness no rebound HIDA scan with prompt excretion into bile ducts and small bowel. GB does not fill ICD10 Worksheet Patient Problems: Problems Problem Status Onset Septic shock Acute
[2017-03-29] MEDS ORDERED: GRANISETRON TD SCH ×2 (12:00)
--- NOTE | 2017-03-29 12:35 | SOAPPROG ---
SOJASE Progress Note Assessment/Plan: Assessment: 1) Metastatic pancreatic cancer 2) Indwelling biliary stent 3) Cholecystitis 4) Klebsiella bacteremia 5) Chemotherapy induced anemia, neutropenia Plan: Christina is doing better. Her neutropenia is better following GCSF. Will give additional dose today, and d/c tomorrow if neutrophil count remains normal. Continue Zosyn. Await sensitivity data for Klebsiella. She is doing well on her current therapy. Agree with plan for eventual CCY. If her neutrophil count remains normal tomorrow, and she is doing well clinically, I would support proceeding with CCY or Monday. Her next chemotherapy treatment is due next week. This angelo need to be delayed in light of recent events. Care plan d/w nursing, patient family. Questions answered. 03/29/17 12:29 03/29/17 12:30 Subjective: Feels fatigues but otherwise well. Denies RUQ pain at rest. HIDA confirms acute cholecystitis. Blood cultures positive for Klebsiella. Objective: Vital Signs Temp Pulse Resp BP Pulse Ox 36.6 C 81 21 H 107/69 95 03/29/17 08:00 03/29/17 12:00 03/29/17 12:00 03/29/17 12:00 03/29/17 12:00 Laboratory Results 03/29/17 04:30 03/29/17 04:30 03/28/17 03/29/17 03/30/17 05:59 05:59 05:59 Intake Total 5031 Output Total 1450 Balance 3581 PT 18.0 SEC (12.0-15.0) H 03/28/17 08:03 INR 1.49 (0.83-1.16) H 03/28/17 08:03 - Time Spent With Patient Time Spent With Patient: 25 minutes Physical Exam - Physical Exam General Appearance: alert, no apparent distress EENT: PERRL/EOMI Respiratory: lungs clear Abdomen: non-tender, soft Neuro/Psych: alert, normal mood/affect ICD10 Worksheet Patient Problems: Problems Problem Status Onset Septic shock Acute
--- NOTE | 2017-03-29 12:46 | ASMTCMCOM ---
CM Note CM Note Notes: Patient to have surgery later in week. Needs TBD after her surgery. CM to follow. Date Signed: 03/29/2017 12:46 PM Electronically Signed By:Sara Robledo RN
[2017-03-29] MEDS: FILGRASTIM-SNDZ 300 MCG/0.5 ML SYR SC SCH (14:06)
--- NOTE | 2017-03-29 15:59 | HOSPPROG ---
Hospitalist Progress Note Assessment/Plan: 51 yo F with hx of metastatic pancreatic cancer currently on FOLFIRI chemotherapy with stent in her biliary tree presenting with sepsis and ruq pain in the setting of cholecystitis and klebsiella bacteremia # cholecystitis: US personally reviewed showing GB distension and pericholecystic fluid c/w cholecystitis. Started on zosyn with a plan for lap naila and IOC in coming days. Biliary stent felt to be patent. # septic shock: in the setting of above and associated neutropenia and sofa score of 5. BP now improved on NE, lactate peaked at 3.9 and has improved to 1.8. HD stable. Will titrate off NE as able. # klebsiella bacteremia: in the setting of cholecystitis, will repeat blood culture in am for clearance and ask for ID to get involved in am. # metastatic pancreatic cancer: followed by oncology, has been undergoing FOLFIRI chemo # neutropenia/anemia: 2/2 chemotherapy, trending # IP status, remains critically ill in ICU Patient new to my care. Old record reviewed and summarized as above. Care plan reviewed with Dr. Zavala and multidisciplinary care team. Subjective: no significant overnight events, patient is feeling a bit better today Objective: Vital Signs Temp Pulse Resp BP Pulse Ox 36.6 C 88 19 109/74 96 03/29/17 08:00 03/29/17 15:00 03/29/17 15:00 03/29/17 15:00 03/29/17 15:00 Laboratory Results 03/29/17 04:30 03/29/17 04:30 03/28/17 03/29/17 03/30/17 05:59 05:59 05:59 Intake Total 5031 Output Total 1450 600 Balance 3581 -600 PT 18.0 SEC (12.0-15.0) H 03/28/17 08:03 INR 1.49 (0.83-1.16) H 03/28/17 08:03 awake alert anicteric op clear rrr no mrg dec bs at bases soft bs decreased no cce warm dry well perfused oriented appropriate ICD10 Worksheet Patient Problems: Problems Problem Status Onset Septic shock Acute
--- NOTE | 2017-03-29 17:48 | SOAPPROG ---
SOAP Progress Note Assessment/Plan: Assessment: 51yo F with pancreatic cancer admitted with RUQ pain HIDA nonvisualized gallbladder - thought to have acute acalculous cholecystitis Was eating a bagel this morning, michael low fat diet Will likely need OR for lap naila Continue to monitor WBC Dr. Gasca will take over care while Dr. Robles out of town. Seen with Dr. Clara Robles. S: Improved this morning. Pain subsided. Tolerating low-fat diet without worsening symptoms O: Comfortable woman in no acute distress, family at bedside No increased work of breathing Abdomen soft, nondistended, minimally tender to palpation. Plan: 03/29/17 17:45 Objective: Vital Signs Temp Pulse Resp BP Pulse Ox 36.8 C 86 20 108/70 95 03/29/17 16:00 03/29/17 17:00 03/29/17 17:00 03/29/17 17:00 03/29/17 17:00 Laboratory Results 03/29/17 04:30 03/29/17 04:30 03/28/17 03/29/17 03/30/17 05:59 05:59 05:59 Intake Total 5031 Output Total 1450 600 Balance 3581 -600 PT 18.0 SEC (12.0-15.0) H 03/28/17 08:03 INR 1.49 (0.83-1.16) H 03/28/17 08:03 ICD10 Worksheet Patient Problems: Problems Problem Status Onset Septic shock Acute
--- NOTE | 2017-03-29 18:14 | GCON ---
[f rep st] CONSULTATION PULMONARY CRITICAL CARE CONSULTATION REASON FOR CONSULTATION: Intensive care unit evaluation and management of acute cholecystitis in a p atient with pancreatic cancer. HISTORY: The patient is a very pleasant 51-year-old who was admitted yesterday having been found vlad n at home by her , incontinent of stool with confusion. She had had some fevers and chills ov ernight and increased right upper quadrant pain. Evaluation on admission to the emergency department was remarkable for an ultrasound which showed changes consistent of acalculous cholecystitis. Bilia ry stents appeared to be patent. She was hypotensive. A central line was initially placed, but then removed secondary to kinking of the line during placeme nt. She was given intravenous fluids and started on antibiotics. A HIDA scan was subsequently performed and was consistent with acute cholecystitis. There was no savita dence of bile duct obstruction. She has been seen by Surgery and cholecystectomy is planned over the next several days. The patient was diagnosed with pancreatic cancer approximately 1 year ago. She has been receiving emotherapy for this. She has had biliary stents placed in the past which appear to be functioning we ll and are patent. PAST MEDICAL HISTORY: Largely remarkable just for her pancreatic cancer with known metastatic diseas e. DRUG ALLERGIES: None known. PAST SURGICAL HISTORY: Biliary stenting. SOCIAL HISTORY: The patient is . Alcohol and tobacco are negative. Her daughter is with her currently. FAMILY HISTORY: Unremarkable. REVIEW OF SYSTEMS: Negative except as mentioned above. She denies any current complaints except for some bloating/gaseous sensation and mild abdominal discomfort. She denies shortness of breath or pa in elsewhere. There is no history of lung or heart disease, renal disease, or other problems. A 10- point review of systems is otherwise negative. PHYSICAL EXAMINATION: GENERAL: Reveals a very pleasant woman who is somewhat pale sitting comfortab ly up in bed. VITAL SIGNS: Blood pressure is 118/76, heart rate 81 with sinus rhythm on the monitor . Respiratory rate is 20. She is afebrile. She is on room air. CVP is 10. HEENT: Unremarkable f or lymphadenopathy or thyromegaly. There is no scleral icterus. Mucous membranes are moist. CHEST: Clear bilaterally with somewhat decreased breath sounds at the bases. A few nonspecific rales are present primarily at the left base. HEART: Regular in rate and rhythm without significant murmur or gallop. ABDOMEN: Relatively soft with some tenderness over the right upper quadrant which was not deeply palpated. Bowel sounds are present. EXTREMITIES: Unremarkable for edema, cords, or tenderne ss. NEUROLOGIC: Nonfocal. DATABASE: Radiologic studies are as outlined above. Laboratory: White blood cell count 6300, hematocrit 26 stable from admission. Platelets are 117,000. PT on admission was mildly elevated at 18, PTT was normal. Blood lactate peaked at 3.9 and was nor mal at 1.8 this morning. MVO2 95. Sodium is 140, potassium 4.0, CO2 19 with an anion gap 7. BUN 17 with a creatinine of 0.9. Glucose is 150-180 range. Calcium is 8.1, total bilirubin 1.1, AST 30 wi th an ALT of 94. Albumin is 2.2. Urinalysis shows white blood cells present with bacteria. Urine c ulture is pending. Respiratory viral panel is negative. Blood cultures are growing Klebsiella. ASSESSMENT: 1. Acute cholecystitis. This is associated with sepsis and Klebsiella bacteremia. She is being chai ated with Zosyn. 2. Severe sepsis. Resolving. Secondary to #1. 3. Metastatic pancreatic cancer. She continues to be treated with chemotherapy and appears to be fernandez ving a reasonably good response. She has had associated neutropenia/pancytopenia in the past. This is not a current issue. 4. Metabolic. No issues identified. 5. Deep venous thrombosis prophylaxis: None currently. This would be indicated based on the timing of her planned cholecystectomy. I will discuss this with Surgery. 6. Gastrointestinal prophylaxis: None needed. Currently eating. PLAN AND RECOMMENDATIONS: The patient will be kept in the intensive care unit. Laboratory will be f matildeed. Intravenous fluids will be given, pressors again if needed. Appropriate pain control will be maintained. Current medications will be maintained. Cholecystectomy is being planned. I am not sure of the exact timing of this. Surgery is following. Further plans and recommendations will be made based on her progress over the next 12-24 hours. /[id number]/MODL
--- NOTE | 2017-03-29 18:28 | SOAPPROG ---
CECE Progress Note Assessment/Plan: Assessment: CONSULT FOR POSSIBLE CHOLECYSTECTOMY ON 51-YEAR-OLD FEMALE WITH METASTATIC PANCREATIC CANCER ON CHEMOTHERAPY. HIDA SCAN IS NON VIS OF HER GALLBLADDER BUT SHE HAS A STENT IN PLACE. SHE WAS ADMITTED FOR SEPSIS AND HAS RESPONDED WELL TO ANTIBIOTICS. SHE WAS QUITE NEUTROPENIC BUT WITH MEDICATION HER WBC IS NOW 6000 LFTS ARE REASONABLY NORMAL. ABDOMEN IS SOFT SLIGHTLY DISTENDED WITH MILD RIGHT UPPER QUADRANT TENDERNESS ULTRASOUND SHOWED NO STONES BUT A THICKENED GALLBLADDER WALL AND NONDILATED DUCTS IMPRESSION: DIFFICULT TO TELL WHETHER THIS IS TRUE CHOLECYSTITIS IN THE FACE OF CHEMOTHERAPY NEUTROPENIA FOR TREATMENT OF PANCREATIC CANCER. HIDA SCANS ARE NOT RELIABLE IN THE FACE OF A PANCREATIC STENT WHICH PREVENTS FILLING OF THE GALLBLADDER AND SOME INSTANCES. LFTS ARE MINIMALLY ELEVATED FOR CHOLANGITIS HOWEVER. WITH STILL CONSIDER CHOLECYSTECTOMY IF SHE CONTINUES WITH RIGHT UPPER QUADRANT DISCOMFORT AND HER MEDICAL SITUATION IS STABLE ENOUGH FOR SURGERY Plan: RE-EVALUATE IN THE MORNING/CHECK WBC/FOLLOW-UP LFTS/CONSIDER LAP CHOLY/ RISKS AND OPTIONS BEEN FULLY DISCUSSED THE PATIENT AND HER FATHER 03/29/17 18:24 Objective: Vital Signs Temp Pulse Resp BP Pulse Ox 36.8 C 86 20 108/70 95 03/29/17 16:00 03/29/17 17:00 03/29/17 17:00 03/29/17 17:00 03/29/17 17:00 Laboratory Results 03/29/17 04:30 03/29/17 04:30 03/28/17 03/29/17 03/30/17 05:59 05:59 05:59 Intake Total 5031 Output Total 1450 600 Balance 3581 -600 PT 18.0 SEC (12.0-15.0) H 03/28/17 08:03 INR 1.49 (0.83-1.16) H 03/28/17 08:03 ICD10 Worksheet Patient Problems: Problems Problem Status Onset Septic shock Acute
[2017-03-29] MEDS ORDERED: Lipase/Protease/Amylase [Creon Dr 36,000 Units Capsule] PO SCH (19:45)
[2017-03-29] MEDS: LORazepam 0.5 MG TAB PO PRN (21:51)
[2017-03-30] MEDS: PIPERACILLIN/TAZO 3.375 GM/DEX 50 ML IV SCH (05:36)
[2017-03-30] MEDS: NS 1,000 ML IV SCH (05:36)
[2017-03-30] MEDS: NOREPINEPHRINE/NS 500 ML IV SCH (05:37)
[2017-03-30 05:58] LABS: ADD MORPH? NO; ADD SCAN? YES; ATYPICAL LYMPHOCYTE FLAG 0 (0-99); FRAGMENT RBC FLAG 20 (0-99); HEMOGLOBIN 8.4 g/dL (12.6-16.3); LIPEMIA HEMOLYSIS FLAG 80 (0-99); MEAN CELL HEMOGLOBIN 29.4 pg (27.9-34.1); MEAN CELL HEMOGLOBIN CONCENTR. 32.3 g/dL (32.4-36.7); MEAN CELL VOLUME 90.9 fL (81.5-99.8); MEAN PLATELET VOLUME 10.5 fL (8.7-11.7); PLATELET CLUMPS FLAG 0 (0-99); PLATELET COUNT 91 10^3/uL (150-400); RED BLOOD CELL COUNT 2.86 10^6/uL (4.18-5.33); RED CELL DISTRIBUTION WIDTH 16.5 % (11.5-15.2)
[2017-03-30 06:01] LABS: LEFT SHIFT FLG 300 (0-99)
[2017-03-30] MEDS: NYSTATIN SUSP 500000 UNIT/5 ML UDCUP PO SCH ×4 (06:11→23:54)
[2017-03-30 06:28] LABS: ADD DIFF? YES; SCAN POSITIVE
[2017-03-30 06:33] LABS: PLATELET ESTIMATE DECREASED (ADEQ); TOXIC GRANULATION PRESENT
[2017-03-30 06:43] LABS: ALANINE AMINOTRANSFERASE 71 IU/L (9-52); ALBUMIN 2.3 g/dL (3.5-5.0); ALKALINE PHOSPHATASE 106 IU/L (38-126); ANION GAP 7 mEq/L (8-16); ASPARTATE AMINOTRANSFERASE 19 IU/L (14-46); BILIRUBIN,TOTAL 0.8 mg/dL (0.1-1.4); CALCIUM 7.9 mg/dL (8.5-10.4); CARBON DIOXIDE 20 mEq/l (22-31); CHLORIDE 115 mEq/L (97-110); CREATININE 0.7 mg/dL (0.6-1.0); GLOMERULAR FILTRATION RATE > 60; GLUCOSE 69 mg/dL (70-100); POTASSIUM 3.4 mEq/L (3.5-5.2); SODIUM 142 mEq/L (134-144); TOTAL PROTEIN 4.1 g/dL (6.3-8.2)
[2017-03-30] MEDS: Lipase/Protease/Amylase [Creon Dr 36,000 Units Capsule] PO SCH ×3 (09:04→22:48)
[2017-03-30] MEDS: ACETAMINOPHEN 325 MG TAB PO PRN (09:06)
[2017-03-30] MEDS: morphINE SR 15 MG TAB PO SCH ×2 (09:08→21:28)
[2017-03-30] MEDS: GABAPENTIN 300 MG CAP PO SCH ×3 (09:08→21:28)
[2017-03-30 09:47] LABS: INR 1.27 (0.83-1.16); PROTIME(PATIENT) 15.9 SEC (12.0-15.0)
[2017-03-30 09:48] LABS: APTT 26.4 SEC (23.0-38.0)
--- NOTE | 2017-03-30 12:00 | GCON ---
[f rep st] CONSULTATION INFECTIOUS DISEASES CONSULTATION DATE OF CONSULTATION: 03/30/2017 REFERRING PHYSICIAN: Becca Carlos MD REASON FOR CONSULTATION: Septic shock due to gram-negative jennifer bacteremia. HISTORY OF PRESENT ILLNESS: Patient is a 51-year-old female with a past medical history of metastati c pancreatic cancer and prior biliary stenting, whom I am asked to see in consultation for septic bindu ck associated with Klebsiella pneumoniae bacteremia. Patient received chemotherapy on 03/23/2015 wit h 5-FU, leucovorin, and irinotecan. Patient developed the abrupt onset of rigors beginning on the ev ening of 03/27 or 03/28/2017. Patient subsequently was found by her on the ground in the bath room incoherent and was noted to have had fecal incontinence. She was noted to have significant hypo tension and clinical findings consistent with septic shock. She was also noted to be neutropenic wit h an absolute neutrophil count of 340. She was started empirically on piperacillin/tazobactam. Bloo d cultures obtained at the time of admission show growth of Klebsiella pneumoniae, which is only resi stant to ampicillin. She describes taking levofloxacin approximately 3 weeks ago as an outpatient fo r fever and chills with resolution of symptomatology. Evaluation has included an abdominal ultrasoun d, which showed diffuse gallbladder wall thickening with pericholecystic fluid suspicious for acalcul ous acute cholecystitis. No intrahepatic biliary ductal dilatation was noted. Subsequently, she und erwent HIDA scan, which showed no filling of the gallbladder. This was felt to be consistent with ac lele cholecystitis. Surgical consultation has been obtained with consideration for cholecystectomy pe nding continued clinical improvement. Currently, patient feels significantly improved and has been w eaned off pressors. She has mild residual abdominal pain and nausea. There is no ongoing vomiting o r diarrhea. She has a port in the right upper chest, which has not been tender or associated with er ythema. Repeat blood cultures have been obtained on 03/30/2017. Given the above findings, I am now asked to assist in her ongoing management. PAST MEDICAL HISTORY: Metastatic pancreatic cancer post biliary stenting last year with ongoing chem otherapy as outlined above; patient has been treated as an outpatient for cholangitis previously with oral levofloxacin, which led to clinical resolution, peripheral neuropathy associated with chemother apy. PAST SURGICAL HISTORY: Biliary stenting and port placement. CURRENT MEDICATIONS: Zosyn 3.375 g IV q.6 hours, Zarxio 300 mcg subcu daily, Neurontin 300 mg p.o. t .i.d., Imodium as needed for loose stool, MS Contin 15 mg p.o. b.i.d., nystatin 500,000 units p.o. q. i.d. ALLERGIES: No known drug allergies. SOCIAL HISTORY: Patient does not smoke, drink alcohol, or use any drugs. No recent travel. FAMILY HISTORY: Unremarkable. REVIEW OF SYSTEMS: Outside of that noted in the HPI, the remainder of 10-system review is unremarkab le. PHYSICAL EXAMINATION: VITAL SIGNS: Temperature 37.0, heart rate 70, respiratory rate 22, blood pres sure 107/71, oxygen saturation 94% on room air. GENERAL: Patient is a thin female, in no acute dist ress. She appears nontoxic. HEENT: There is no scleral icterus, conjunctival injection, or conjunc tival petechiae. Oropharynx shows slightly dry mucous membranes with no thrush noted. Dentition is in fair repair. There is no nasal discharge. There is no tenderness over the frontal, maxillary, or mastoid area. NECK: Supple without palpable lymphadenopathy or thyromegaly. CHEST: Clear to ausc ultation bilaterally without adventitious sounds. Respiratory effort is normal. A port is present i n the right upper chest with no erythema or tenderness. A triple-lumen catheter is present in the le ft subclavian region with no erythema or tenderness. CARDIOVASCULAR: Regular rate and rhythm withou t murmurs, gallops, or rubs. ABDOMEN: Soft, nontender, nondistended. There is no palpable organome yonathan. Bowel sounds are present. MUSCULOSKELETAL: There is no cyanosis, clubbing, or edema. SKIN: There are no rashes present. There are no stigmata of endocarditis. LYMPHATICS: No cervical or quiñones praclavicular nodes noted. NEUROLOGIC: Patient is alert and interacts appropriately with examiner. Cranial nerves 2-12 are grossly intact. Sensation is grossly intact. Muscle tone and bulk are norm al. LABORATORY DATA: White blood cell count 11.7, hematocrit 26.0, platelets 91, neutrophils 25%, bands 29%, lymphocytes 32%. Serum creatinine is 0.7, AST 19, ALT 71, alkaline phosphatase 106, bilirubin 0 .8, albumin 2.3. Venous lactate yesterday was 1.8. C difficile toxin is negative. Blood cultures x 1 set from 03/28/2017 showed growth of Klebsiella pneumoniae, which is resistant to ampicillin only; urine culture shows no growth. Blood cultures x2 from 03/30/2017 are pending. IMAGING DATA: As outlined above. IMPRESSION: 1. Septic shock due to Klebsiella pneumoniae bacteremia of biliary etiology with concomitant neutrop enia: Septic shock has resolved, and patient is clinically improved with resolution of neutropenia. Klebsiella isolate is broadly susceptible. Will transition piperacillin/tazobactam to ampicillin/quiñones lbactam. Continued surgical evaluation for cholecystectomy is ongoing. Given patient's clinical cou rse, I think this can proceed at any point moving forward from Infectious Disease perspective. 2. Neutropenia: This has resolved. Etiologies of consideration include chemotherapy versus due to septic shock. Will review this further with Oncology regarding need for G-CSF with future chemothera py. RECOMMENDATIONS: 1. Unasyn 3 g IV q.6 hours. 2. Discontinue Zosyn. 3. Follow up repeat blood cultures, which are currently pending. 4. Await further surgical input regarding timing of cholecystectomy. Thank you for this consultation. We will continue to follow the patient with you. /[id number]/MODL
[2017-03-30] MEDS: AMPICILLIN/SULBACTAM 3 GM in NS 100 ML IV SCH ×3 (12:44→23:52)
--- NOTE | 2017-03-30 13:59 | PDANEPAE ---
ANE History of Present Illness 51 year old female w/ PMHx of metastatic pancreatic cancer with biliary stent and recent admission for septic shock (blood cultures have grown Klebsiella pneumoniae) thought to be of biliary origin presents from ICU to OR for laparoscopic cholecystectomy. ANE Past Medical History - Cardiovascular History Hx Hypertension: No Hx Arrhythmias: No Hx Chest Pain: No Hx Coronary Artery / Peripheral Vascular Disease: No Hx CHF / Valvular Disease: No Hx Palpitations: No - Pulmonary History Hx COPD: No Hx Asthma/Reactive Airway Disease: No Hx Recent Upper Respiratory Infection: No Hx Oxygen in Use at Home: No Hx Sleep Apnea: No - Endocrine History Hx Diabetes: No Hypothyroid: No Hyperthyroid: No Obesity: no - Renal History Hx Renal Disorders: No - Liver History Hepatic History Comment: Slightly elevated liver enzymes - Neurological & Psychiatric Hx Hx Neurological and Psychiatric Disorders: Yes Neurological / Psychiatric History Comment: 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 - GI History Hx Gastrointestinal Disorders: No - Chronic Pain History Chronic Pain: No ANE Review of Systems Review of systems is: negative Review of Systems: - Exercise capacity Exercise capacity: >=4 METS ANE Patient History - Allergies Allergies/Adverse Reactions: No Known Drug Allergies Allergy (Verified 03/28/17 08:20) - Home Medications Home medications: home medication list seen and reviewed Home Medications: Aspirin [Aspirin 81mg (*)] 81 mg PO DAILY 03/28/17 [Last Taken 03/27/17] Cholecalciferol Vit D3 [Vitamin D3 (*)] 5,000 units PO DAILY 03/28/17 [Last Taken 03/27/17] Dexamethasone [Decadron 4 MG (*)] 4 mg PO BID 03/28/17 [Last Taken 03/27/17] Diphenoxylate HCl/Atrop Sulf [Lomotil Tab (*)] 1 tab PO QID PRN 03/28/17 [Last Taken Unknown] Docusate Sodium [Colace 100 MG (*)] 100 mg PO DAILY PRN 03/28/17 [Last Taken ] Gabapentin [Neurontin 300 MG (*)] 300 mg PO TID 03/28/17 [Last Taken 03/27/17] Granisetron [Sancuso] 1 each TD Q7D 03/28/17 [Last Taken 03/14/17] LORazepam [Ativan (*)] 0.5 mg PO HS 03/28/17 [Last Taken 03/27/17] LORazepam [Ativan (*)] 0.5 mg PO Q6-8PRN PRN 03/28/17 [Last Taken Unknown] Lipase/Protease/Amylase [Katie Engel 36,000 Units Capsule] 2 each PO QID 03/28/17 [ Last Taken 03/27/17] Lipase/Protease/Amylase [Katie Engel 36,000 Units Capsule] 3 each PO TIDMEAL [Last Taken 03/27/17] Loperamide HCl [IMODIUM A-D] 5 ml PO DAILY PRN 03/28/17 [Last Taken Unknown] Magic Mouth Wash 10 ml PO QID 03/28/17 [Last Taken 03/21/17] Nystatin Susp [Mycostatin Oral Liquid] 5 ml PO QID 03/28/17 [Last Taken 03/27/17 ] Prochlorperazine Maleate [Compazine 10mg (*)] 10 mg PO Q6HRS PRN 03/28/17 [Last Taken Unknown] morphINE SR [Ms Contin/Oramorph 15 mg (*)] 15 mg PO BID 03/28/17 [Last Taken 21:00] oxyCODONE IR [Oxycodone Ir (*)] 5 mg PO DAILY PRN 03/28/17 [Last Taken 03/27/17 21:00] - NPO status NPO Status: no food or drink >8 hours - Anes Hx Anes Hx: no prior problems - Smoking Hx Smoking Status: Never smoked - Alcohol Use Alcohol Use: Sober - Family Anes Hx Family Anes Hx: neg - N/A ANE Labs/Vital Signs - Labs Result Diagrams: 03/30/17 05:45 03/30/17 05:45 - Vital Signs Vital Signs: reviewed preoperatively; see RN documention for details Blood Pressure: 106/72 Heart Rate: 71 Respiratory Rate: 18 O2 Sat (%): 95 Height: 167.64 cm Weight: 56.699 kg ANE Physical Exam - Airway Neck exam: FROM Mallampati Score: Class 2 Mouth exam: normal dental/mouth exam, small mouth opening - Pulmonary Pulmonary: no respiratory distress - Cardiovascular Cardiovascular: regular rate and rhythym - ASA Status ASA Status: IV ANE Anesthesia Plan Anesthesia Plan: general endotracheal anesthesia Lines/Monitors: arterial line (Given recent septic shock, will place arterial line if refractory hypotension in OR.)
--- NOTE | 2017-03-30 14:20 | PDINTPN ---
Scenario Writer Progress Note Assessment/Plan: Assessment: Acalculous cholecystitis. For cholecystectomy later today. Bacteremic with Klebsiella. On Unasyn per Infectious Disease. Severe sepsis: Resolved. Off norepinephrine. Blood pressure is normalizing Metastatic pancreatic cancer. On chemotherapy. Pancytopenia: Resolving. White blood cell count now 11,000, hematocrit stable at 26, platelets [id number]. We can possibly stop peau attic factors. I will leave this up to Oncology. Plan: For cholecystectomy today. Continue antibiotics and current medications. Re-evaluate postoperatively. Subjective: Doing well overall, feels better. Still has some mild abdominal pain that comes and goes associated with some gaseousness and bloating sensation. NPO for possible surgery. No nausea and vomiting. Objective: Vital Signs Temp Pulse Resp BP Pulse Ox 37.1 C 71 18 106/72 95 03/30/17 11:59 03/30/17 14:00 03/30/17 14:00 03/30/17 14:00 03/30/17 14:00 Laboratory Results 03/30/17 05:45 03/30/17 05:45 03/29/17 03/30/17 03/31/17 05:59 05:59 05:59 Intake Total 5031 5922 Output Total 1450 2925 600 Balance 3581 2997 -600 PT 15.9 SEC (12.0-15.0) H 03/30/17 09:20 INR 1.27 (0.83-1.16) H 03/30/17 09:20 Laboratory Tests 03/30/17 03/30/17 05:45 09:20 PT 15.9 H INR 1.27 H APTT 26.4 Calcium 7.9 L Total Bilirubin 0.8 AST 19 ALT 71 H Albumin 2.3 L Physical Exam - Physical Exam General Appearance: alert, no apparent distress, other ( In chair) EENT: PERRL/EOMI, other ( on room air) Neck: normal inspection Respiratory: lungs clear Cardiac/Chest: regular rate, rhythm Abdomen: normal bowel sounds, soft, No non-tender Skin: warm/dry, pallor Extremities: No pedal edema Neuro/Psych: no motor/sensory deficits, No cognition abnormalities ICD10 Worksheet Patient Problems: Problems Problem Status Onset Septic shock Acute
--- NOTE | 2017-03-30 14:46 | SOAPPROG ---
SOAP Progress Note Assessment/Plan: Assessment: 1) Metastatic pancreatic cancer 2) Indwelling biliary stent 3) Cholecystitis 4) Klebsiella bacteremia 5) Chemotherapy induced anemia, neutropenia Plan: Christina's neutropenia has resolved, and I will stop her G-CSF today. She is scheduled for CCY today. Her abx coverage was switched to Ampicillin/Sulbactam. Her next chemotherapy treatment is due next week. This will need to be delayed in light of recent events. Care plan d/w nursing, patient family. Questions answered. Subjective: Scheduled to proceed with CCY today. Objective: Vital Signs Temp Pulse Resp BP Pulse Ox 37.1 C 71 18 106/72 95 03/30/17 11:59 03/30/17 14:30 03/30/17 14:30 03/30/17 14:30 03/30/17 14:30 Laboratory Results 03/30/17 05:45 03/30/17 05:45 03/29/17 03/30/17 03/31/17 05:59 05:59 05:59 Intake Total 5031 5922 Output Total 1450 2925 600 Balance 3581 2997 -600 PT 15.9 SEC (12.0-15.0) H 03/30/17 09:20 INR 1.27 (0.83-1.16) H 03/30/17 09:20 - Time Spent With Patient Time Spent With Patient: 25 minutes Physical Exam - Physical Exam General Appearance: alert, no apparent distress EENT: PERRL/EOMI Neuro/Psych: normal mood/affect, oriented x 3 ICD10 Worksheet Patient Problems: Problems Problem Status Onset Septic shock Acute
[2017-03-30] MEDS: FILGRASTIM-SNDZ 300 MCG/0.5 ML SYR SC SCH (14:54)
[2017-03-30] MEDS ORDERED: HEPARIN 1000 UNIT/1 ML MDV ONE (15:33)
[2017-03-30] MEDS ORDERED: BUPIVACAINE 0.5% 30 ML SDV ONE (15:33)
[2017-03-30] MEDS ORDERED: IOTHALAMATE MEG (CONRAY) 50 ML VIAL IV ONE (15:33)
[2017-03-30] MEDS ORDERED: ceFAZolin 1 GM/5 ML SYR ONE ×2 (15:34→16:53)
[2017-03-30] MEDS ORDERED: ROCURONIUM 50 MG/5 ML VIAL ONE (17:02)
[2017-03-30] MEDS ORDERED: LIDOCAINE 2% 5 ML SDV ONE (17:02)
[2017-03-30] MEDS ORDERED: fentaNYL 100 MCG/2 ML INJ ONE ×2 (17:03→18:11)
[2017-03-30] MEDS ORDERED: PROPOFOL 200 MG/20 ML VIAL ONE (17:03)
[2017-03-30] MEDS ORDERED: DEXAMETHASONE 4 MG/ML VIAL ONE (17:12)
[2017-03-30] MEDS ORDERED: PHENYLEPHRINE HCL 100 MCG/ML SYR ONE (17:20)
--- NOTE | 2017-03-30 17:50 | HOSPPROG ---
Hospitalist Progress Note Assessment/Plan: 51 yo F with hx of metastatic pancreatic cancer currently on FOLFIRI chemotherapy with stent in her biliary tree presenting with sepsis and ruq pain in the setting of cholecystitis and klebsiella bacteremia # cholecystitis: US personally reviewed showing GB distension and pericholecystic fluid c/w cholecystitis. Started on zosyn initially, now with culture data changed to unasyn. Plan for lap naila today. # septic shock: in the setting of above and associated neutropenia and sofa score of 5. Weaning off of NE overnight. # klebsiella bacteremia: in the setting of cholecystitis, now on unasyn, appreciate ID consult. # metastatic pancreatic cancer: followed by oncology, has been undergoing FOLFIRI chemo, s/p GCSF for neutropenia, counts improved # neutropenia/anemia: 2/2 chemotherapy, wbc improved, h/h stable # IP status, may be able to move from ICU soon if not requiring pressors Care plan reviewed with Dr. Zavala and multidisciplinary care team. Subjective: no significant overnight events, patient feeling a bit better today , nervous re surgery Objective: Vital Signs Temp Pulse Resp BP Pulse Ox 36.9 C 67 16 105/93 H 97 03/30/17 16:00 03/30/17 16:00 03/30/17 16:00 03/30/17 16:00 03/30/17 16:00 Laboratory Results 03/30/17 05:45 03/30/17 05:45 03/29/17 03/30/17 03/31/17 05:59 05:59 05:59 Intake Total 5031 5922 1184 Output Total 1450 2925 1575 Balance 3581 2997 -391 PT 15.9 SEC (12.0-15.0) H 03/30/17 09:20 INR 1.27 (0.83-1.16) H 03/30/17 09:20 awake alert anicteric op clear rrr no mrg dec bs at bases soft bs decreased no cce warm dry well perfused oriented appropriate ICD10 Worksheet Patient Problems: Problems Problem Status Onset Septic shock Acute
[2017-03-30] MEDS ORDERED: PROTOCOL K PHOSPHATE 1 DOSE IV PRN (17:51)
[2017-03-30] MEDS ORDERED: PROTOCOL MAGNESIUM 1 DOSE IV PRN (17:51)
[2017-03-30] MEDS ORDERED: PROTOCOL POTASSIUM 1 DOSE MISC PRN (17:51)
[2017-03-30] MEDS ORDERED: SUGAMMADEX SODIUM 200 MG/2 ML VIAL IVP ONE (18:06)
[2017-03-30] MEDS ORDERED: ONDANSETRON 4 MG/2 ML VIAL ONE (18:06)
[2017-03-30] MEDS ORDERED: fentaNYL 100 MCG/2 ML INJ IVP PRN (18:12)
[2017-03-30] MEDS ORDERED: PROMETHAZINE HCL 25 MG/ML INJ IVP PRN (18:12)
[2017-03-30] MEDS ORDERED: NALOXONE HCL 0.4 MG/ML INJ IVP PRN (18:12)
[2017-03-30] MEDS ORDERED: HYDROmorphONE/DILAUDID 1 MG/ML INJ IVP PRN (18:12)
[2017-03-30] MEDS ORDERED: ONDANSETRON 4 MG/2 ML VIAL IVP PRN (18:12)
--- NOTE | 2017-03-30 18:27 | SOAPPROG ---
CECE Progress Note Assessment/Plan: Assessment: CONSULT FOR POSSIBLE CHOLECYSTECTOMY ON 51-YEAR-OLD FEMALE WITH METASTATIC PANCREATIC CANCER ON CHEMOTHERAPY. HIDA SCAN IS NON VIS OF HER GALLBLADDER BUT SHE HAS A STENT IN PLACE. SHE WAS ADMITTED FOR SEPSIS AND HAS RESPONDED WELL TO ANTIBIOTICS. SHE WAS QUITE NEUTROPENIC BUT WITH MEDICATION HER WBC IS NOW 6000 LFTS ARE REASONABLY NORMAL. ABDOMEN IS SOFT SLIGHTLY DISTENDED WITH MILD RIGHT UPPER QUADRANT TENDERNESS ULTRASOUND SHOWED NO STONES BUT A THICKENED GALLBLADDER WALL AND NONDILATED DUCTS IMPRESSION: DIFFICULT TO TELL WHETHER THIS IS TRUE CHOLECYSTITIS IN THE FACE OF CHEMOTHERAPY NEUTROPENIA FOR TREATMENT OF PANCREATIC CANCER. HIDA SCANS ARE NOT RELIABLE IN THE FACE OF A PANCREATIC STENT WHICH PREVENTS FILLING OF THE GALLBLADDER AND SOME INSTANCES. LFTS ARE MINIMALLY ELEVATED FOR CHOLANGITIS HOWEVER. WITH STILL CONSIDER CHOLECYSTECTOMY IF SHE CONTINUES WITH RIGHT UPPER QUADRANT DISCOMFORT AND HER MEDICAL SITUATION IS STABLE ENOUGH FOR SURGERY Plan: RE-EVALUATE IN THE MORNING/CHECK WBC/FOLLOW-UP LFTS/CONSIDER LAP CHOLY/ RISKS AND OPTIONS BEEN FULLY DISCUSSED THE PATIENT AND HER FATHER 03/29/17 18:24 03/30/17 18:24 feeling betteR/ LFTs OK AFEBRILE/ OFF PRESSORS/ COAGS OK/ WILL PROCEED WITH LAP CHOLEY AND GRAMS/ RISKS AND OPTIONS FULLY DISCUSSED INCLUDING FAILURE TO RESOLVE PEOBLEM AND SHE WISHES TO PROCEED Objective: Vital Signs Temp Pulse Resp BP Pulse Ox 36.9 C 67 16 105/93 H 97 03/30/17 16:00 03/30/17 16:00 03/30/17 16:00 03/30/17 16:00 03/30/17 16:00 Laboratory Results 03/30/17 05:45 03/30/17 05:45 03/29/17 03/30/17 03/31/17 05:59 05:59 05:59 Intake Total 5031 5922 1184 Output Total 1450 2925 1575 Balance 3581 2997 -391 PT 15.9 SEC (12.0-15.0) H 03/30/17 09:20 INR 1.27 (0.83-1.16) H 03/30/17 09:20 ICD10 Worksheet Patient Problems: Problems Problem Status Onset Septic shock Acute
--- NOTE | 2017-03-30 18:30 | POSTOPPROG ---
Post Op Note Date of Operation: 03/30/17 Surgeon: Efren Gasca Type Cutter: DANIELLE RAHMAN Anesthesiologist: YVAN Anesthesia: GET(General Endotracheal) Pre-op Diagnosis: CHOLECYSTITIS Post-op Diagnosis: SAME + POSSIBLE OCCLUDED STENT Indication: SEPSIS, RUQ PAIN Procedure: LAP CHOLEY WITH GRAMS Findings: EDEMATOUS GALLBLADDER WITH THICKENED DUCTS, FREE FLOW INTO DUODENUM BUT NOT Inf/Abcess present in the surg proc area at time of surgery?: Yes Depth: Organ Space EBL: Minimal Complications: 0 Specimen(s): GALLBLADDER
--- NOTE | 2017-03-30 18:35 | POSTANESTH ---
Post Anesthetic Evaluation Cardiovascular Status: Normal, Stable Respiratory Status: Normal, Stable Level of Consciousness/Mental Status: Can Participate in Eval Pain Control: Adequate, Prn Tx Ordered Nausea/Vomiting Control: Adequate, Prn Tx Ordered Complications Possibly Related to Anesthesia: None Noted
--- NOTE | 2017-03-30 18:40 | POSTOPPROG ---
Post Op Note Date of Operation: 03/30/17 Surgeon: Efren Gasca Comb Setter: Bharti Duff PAC, Lenin PATRICIO Anesthesiologist: Ervin Anesthesia: GET(General Endotracheal) Pre-op Diagnosis: cholecystitis Post-op Diagnosis: same Procedure: laparoscopic cholyecystectomy with cholangiogram Inf/Abcess present in the surg proc area at time of surgery?: No Depth: Organ Space EBL: Minimal
--- NOTE | 2017-03-30 18:46 | SOAPPROG ---
CECE Progress Note Assessment/Plan: Assessment: 51yo female with hx of metastatic pancreatic cancer on chemotherapy with possible cholecystitis. MPO for OR today for lap naila with grams Consent in chart Questions answered to her satisfaction. Discussed with Dr. Gasca S: patient wondering about surgical procedures. No other complaints O: Pt lying in bed, NAD No increased WOB +BS Abd nontender Objective: Vital Signs Temp Pulse Resp BP Pulse Ox 36.9 C 67 16 105/93 H 97 03/30/17 16:00 03/30/17 16:00 03/30/17 16:00 03/30/17 16:00 03/30/17 16:00 Laboratory Results 03/30/17 05:45 03/30/17 05:45 03/29/17 03/30/17 03/31/17 05:59 05:59 05:59 Intake Total 5031 5922 1184 Output Total 1450 2925 1575 Balance 3581 2997 -391 PT 15.9 SEC (12.0-15.0) H 03/30/17 09:20 INR 1.27 (0.83-1.16) H 03/30/17 09:20 ICD10 Worksheet Patient Problems: Problems Problem Status Onset Septic shock Acute
[2017-03-30] MEDS: HYDROmorphONE/DILAUDID 1 MG/ML INJ IVP PRN ×2 (19:48→23:53)
[2017-03-30] MEDS: LORazepam 0.5 MG TAB PO PRN (21:28)
[2017-03-31] MEDS: HYDROmorphONE/DILAUDID 1 MG/ML INJ IVP PRN (04:48)
[2017-03-31 05:31] LABS: % IMMATURE GRANULYOCYTES 0.5 % (0.0-1.1); ABSOLUTE IMMATURE GRANULOCYTES 0.06 10^3/uL (0.00-0.10); ADD DIFF? NO; ADD MORPH? NO; ADD SCAN? YES; ATYPICAL LYMPHOCYTE FLAG 0 (0-99); FRAGMENT RBC FLAG 20 (0-99); HEMATOCRIT 25.6 % (38.0-47.0); HEMOGLOBIN 8.2 g/dL (12.6-16.3); LIPEMIA HEMOLYSIS FLAG 80 (0-99); MEAN CELL HEMOGLOBIN 28.8 pg (27.9-34.1); MEAN CELL VOLUME 89.8 fL (81.5-99.8); MEAN PLATELET VOLUME 11.8 fL (8.7-11.7); PLATELET CLUMPS FLAG 0 (0-99); PLATELET COUNT 115 10^3/uL (150-400); RED BLOOD CELL COUNT 2.85 10^6/uL (4.18-5.33); RED CELL DISTRIBUTION WIDTH 15.9 % (11.5-15.2)
[2017-03-31 05:32] LABS: ALANINE AMINOTRANSFERASE 68 IU/L (9-52); ALBUMIN 2.4 g/dL (3.5-5.0); ALKALINE PHOSPHATASE 132 IU/L (38-126); ANION GAP 9 mEq/L (8-16); ASPARTATE AMINOTRANSFERASE 22 IU/L (14-46); BILIRUBIN,TOTAL 0.7 mg/dL (0.1-1.4); CALCIUM 7.9 mg/dL (8.5-10.4); CARBON DIOXIDE 22 mEq/l (22-31); CHLORIDE 108 mEq/L (97-110); CREATININE 0.7 mg/dL (0.6-1.0); GLOMERULAR FILTRATION RATE > 60; GLUCOSE 80 mg/dL (70-100); MAGNESIUM 1.8 mg/dL (1.6-2.3); POTASSIUM 3.7 mEq/L (3.5-5.2); SODIUM 139 mEq/L (134-144); TOTAL PROTEIN 4.3 g/dL (6.3-8.2)
[2017-03-31 05:37] LABS: LEFT SHIFT FLG 300 (0-99)
[2017-03-31 06:17] LABS: SCAN POSITIVE
[2017-03-31] MEDS: AMPICILLIN/SULBACTAM 3 GM in NS 100 ML IV SCH ×4 (06:17→17:45)
[2017-03-31] MEDS: NYSTATIN SUSP 500000 UNIT/5 ML UDCUP PO SCH ×4 (06:18→21:28)
[2017-03-31 06:32] LABS: PLATELET ESTIMATE DECREASED (ADEQ)
[2017-03-31 06:33] LABS: TOXIC GRANULATION PRESENT
[2017-03-31] MEDS: Lipase/Protease/Amylase [Creon Dr 36,000 Units Capsule] PO SCH ×3 (07:03→17:45)
[2017-03-31] MEDS: morphINE SR 15 MG TAB PO SCH ×2 (08:52→21:28)
[2017-03-31] MEDS: GABAPENTIN 300 MG CAP PO SCH ×3 (08:52→21:28)
--- NOTE | 2017-03-31 09:49 | HOSPPROG ---
Hospitalist Progress Note Assessment/Plan: 51 yo F with hx of metastatic pancreatic cancer currently on FOLFIRI chemotherapy with stent in her biliary tree presenting with sepsis and ruq pain in the setting of cholecystitis and klebsiella bacteremia cholecystitis: US personally reviewed showing GB distension and pericholecystic fluid c/w cholecystitis. Started on zosyn initially, now with culture data changed to unasyn. s/p lap naila pancreatic stent: unclear if patent will discuss further w dr dueñas clinical improvement suggestive that stent is patent septic shock: in the setting of above and associated neutropenia and sofa score of 5. septic physiology resolved klebsiella bacteremia: in the setting of cholecystitis, now on unasyn, appreciate ID consult. surbeillance cx neg metastatic pancreatic cancer: followed by oncology, has been undergoing FOLFIRI chemo, s/p GCSF for neutropenia, counts improved neutropenia/anemia: 2/2 chemotherapy, wbc improved, h/h stable IP status, to floor today Care plan reviewed with Dr. Zavala and multidisciplinary care team. Subjective: s/p lap naila yesterday. case d/w dr dueñas Objective: Vital Signs Temp Pulse Resp BP Pulse Ox 36.8 C 77 14 86/56 L 98 03/31/17 07:52 03/31/17 09:27 03/31/17 09:27 03/31/17 09:27 03/31/17 09:27 Microbiology 03/29/17 03:31 Urine Culture - Final Urine,Clean Catch Laboratory Results 03/31/17 05:00 03/31/17 05:00 03/30/17 03/31/17 04/01/17 05:59 05:59 05:59 Intake Total 5922 2059 Output Total 2925 4280 Balance 2997 -2221 PT 15.9 SEC (12.0-15.0) H 03/30/17 09:20 INR 1.27 (0.83-1.16) H 03/30/17 09:20 - Physical Exam Constitutional: no apparent distress, appears nourished Eyes: PERRL, anicteric sclera Ears, Nose, Mouth, Throat: moist mucous membranes, hearing normal Cardiovascular: regular rate and rhythym, no murmur, rub, or gallop Respiratory: no respiratory distress, no rales or rhonchi Gastrointestinal: normoactive bowel sounds, soft, non-tender abdomen Genitourinary: no bladder fullness, No waldron in urethra Skin: warm, normal color Musculoskeletal: full muscle strength, no muscle tenderness Neurologic: AAOx3, sensation intact bilaterally Psychiatric: interacting appropriately ICD10 Worksheet Patient Problems: Problems Problem Status Onset Septic shock Acute
--- NOTE | 2017-03-31 11:44 | SOAPPROG ---
SOAP Progress Note Assessment/Plan: Assessment: 51yo female with hx of metastatic pancreatic cancer on chemotherapy now POD #1 s /p lap naila with grams. Recovering well. Adv diet Cont pain control Appreciate hospitalists Discussed with Dr. Gasca S: No other complaints today. Tolerating diet. Denies N/V/D/C, SOB O: Pt lying in bed, NAD No increased WOB +BS Abd nontender Incisions with steri strips C/D/I Objective: Vital Signs Temp Pulse Resp BP Pulse Ox 36.8 C 88 16 88/65 L 98 03/31/17 07:52 03/31/17 10:00 03/31/17 10:00 03/31/17 10:00 03/31/17 10:00 Microbiology 03/29/17 03:31 Urine Culture - Final Urine,Clean Catch Laboratory Results 03/31/17 05:00 03/31/17 05:00 03/30/17 03/31/17 04/01/17 05:59 05:59 05:59 Intake Total 5922 2059 Output Total 2929 4280 Balance 2997 -2221 PT 15.9 SEC (12.0-15.0) H 03/30/17 09:20 INR 1.27 (0.83-1.16) H 03/30/17 09:20 ICD10 Worksheet Patient Problems: Problems Problem Status Onset Septic shock Acute
[2017-03-31] MEDS: oxyCODONE IR 5 MG TAB PO PRN ×3 (12:12→20:17)
[2017-03-31] MEDS: MBX SOLN 30 ML BOTTLE PO SCH ×3 (12:13→21:11)
--- NOTE | 2017-03-31 13:52 | PCMIDPN ---
Assessment/Plan: Assessment: Sepsis secondary to biliary source for infection due to Klebsiella. Patient is stable on Unasyn. Her white blood cell count shows some leukocytosis which is appropriate for her condition. Her isolate is sensitive to all antibiotics tested except ampicillin alone. Plan to continue her antibiotic coverage for 2 weeks total. There are still questions from the patient family regarding the patency of the biliary stent. Dr. Gasca will be conferring with Radiology about the answer to that question. Plan: 1. Continue IV Unasyn. 2. Follow her repeat blood cultures already obtained. 3. Follow her clinical condition in recovery. 03/31/17 14:18 03/31/17 14:18 Subjective: Patient is resting in her chair in the hospital room. She denies any new complaint. She states she is feeling much better. and mother are also in the room. Long discussion regarding a variety of questions today. Objective: Unasyn # 1 Vital Signs Temp Pulse Resp BP Pulse Ox 36.8 C 100 20 80/51 L 96 03/31/17 07:52 03/31/17 12:00 03/31/17 12:00 03/31/17 12:00 03/31/17 12:00 Microbiology 03/29/17 03:31 Urine Culture - Final Urine,Clean Catch Laboratory Results 03/31/17 05:00 03/31/17 05:00 03/30/17 03/31/17 04/01/17 05:59 05:59 05:59 Intake Total 5922 2059 Output Total 2928 4280 Balance 2997 -2221 - Physical Exam General Appearance: WD/WN, alert, no apparent distress, thin, non-toxic Respiratory: lungs clear, normal breath sounds, No respiratory distress Cardiac/Chest: regular rate, rhythm, No tachycardia Abdomen: soft, No mass Skin: normal color, warm/dry, No rash Neuro/Psych: alert, normal mood/affect, oriented x 3 ICD10 Worksheet Patient Problems: Problems Problem Status Onset Septic shock Acute
--- NOTE | 2017-03-31 14:39 | SOAPPROG ---
SOAP Progress Note Assessment/Plan: Assessment: 1) Metastatic pancreatic cancer 2) Indwelling biliary stent 3) Cholecystitis 4) Klebsiella bacteremia 5) Chemotherapy induced anemia Plan: Christina's neutropenia has resolved, and G-CSF was stopped on 03/30. She underwent a CCY yesterday, and feels well. Final gallbladder pathology is pending. Her abx coverage was switched to Ampicillin/Sulbactam. Her next chemotherapy treatment is due next week. This will need to be delayed in light of recent events. Her anemia is minimally symptomatic. She does not require transfusion support currently. Care plan d/w patient and family. Questions answered. Subjective: Underwent CCY yesterday. Feels well today. Objective: Vital Signs Temp Pulse Resp BP Pulse Ox 36.8 C 100 20 80/51 L 96 03/31/17 07:52 03/31/17 12:00 03/31/17 12:00 03/31/17 12:00 03/31/17 12:00 Microbiology 03/29/17 03:31 Urine Culture - Final Urine,Clean Catch Laboratory Results 03/31/17 05:00 03/31/17 05:00 03/30/17 03/31/17 04/01/17 05:59 05:59 05:59 Intake Total 5922 2059 Output Total 2925 4280 Balance 2997 -2221 PT 15.9 SEC (12.0-15.0) H 03/30/17 09:20 INR 1.27 (0.83-1.16) H 03/30/17 09:20 - Time Spent With Patient Time Spent With Patient: 25 minutes Physical Exam - Physical Exam General Appearance: alert, no apparent distress EENT: PERRL/EOMI Respiratory: lungs clear Cardiac/Chest: regular rate, rhythm Abdomen: other (Soft, mild distension. Minimal tenderness at incision sites.) Neuro/Psych: alert, normal mood/affect ICD10 Worksheet Patient Problems: Problems Problem Status Onset Septic shock Acute
--- NOTE | 2017-03-31 15:13 | ASMTCMCOM ---
MILAN Note MILAN Note Notes: Reviewed chart and d/w RN and hospitalist. Anticipate dc home w/. It is unclear at this time if she will need IV ABX's at dc or not. MILAN w/f. Date Signed: 03/31/2017 03:12 PM Electronically Signed By:Gianna Cummins RN
[2017-03-31] MEDS: LORazepam 0.5 MG TAB PO PRN (21:34)
[2017-04-01] MEDS: AMPICILLIN/SULBACTAM 3 GM in NS 100 ML IV SCH ×3 (00:19→12:06)
[2017-04-01] MEDS: oxyCODONE IR 5 MG TAB PO PRN (00:24)
[2017-04-01] MEDS: MBX SOLN 30 ML BOTTLE PO SCH ×2 (05:31→11:59)
[2017-04-01] MEDS: NYSTATIN SUSP 500000 UNIT/5 ML UDCUP PO SCH ×2 (05:41→13:42)
[2017-04-01] MEDS: ACETAMINOPHEN 325 MG TAB PO PRN ×2 (06:40→12:05)
[2017-04-01 07:33] VITALS: RESP 18
[2017-04-01] MEDS: Lipase/Protease/Amylase [Creon Dr 36,000 Units Capsule] PO SCH ×2 (07:57→12:00)
[2017-04-01] MEDS: GABAPENTIN 300 MG CAP PO SCH (07:58)
[2017-04-01] MEDS: morphINE SR 15 MG TAB PO SCH (07:58)
--- NOTE | 2017-04-01 08:52 | PCMIDPN ---
Assessment/Plan: Assessment: Sepsis secondary to biliary source for infection due to Klebsiella. Patient is stable on Unasyn. Plan to continue her antibiotic coverage for 2 weeks total from her surgery date. There are still questions from the patient family regarding the patency of the biliary stent. Dr. Gasca will be conferring with Radiology about the answer to that question. Plan: 1. Continue IV Unasyn. Once ready for discharge the patient can transition over to Levaquin 750 mg daily. Stop date 04/13/2017. 2. Follow her repeat blood cultures already obtained. Subjective: Patient is sitting up in her hospital chair. She is bright and cheerful. She had a good night last night. She has no particular complaints. Denies fevers or chills. Tolerating Unasyn without issue. Objective: Unasyn # 2 Vital Signs Temp Pulse Resp BP Pulse Ox 36.8 C 81 18 101/68 93 04/01/17 07:33 04/01/17 07:33 04/01/17 07:33 04/01/17 07:33 04/01/17 07:33 Microbiology 03/29/17 03:31 Urine Culture - Final Urine,Clean Catch Laboratory Results 03/31/17 05:00 03/31/17 05:00 03/31/17 04/01/17 04/02/17 05:59 05:59 05:59 Intake Total 9 Output Total 4280 350 Balance -2221 -350 - Physical Exam General Appearance: WD/WN, alert, no apparent distress, non-toxic Respiratory: lungs clear, normal breath sounds Cardiac/Chest: regular rate, rhythm Skin: normal color, warm/dry, No rash Neuro/Psych: alert, normal mood/affect, oriented x 3 ICD10 Worksheet Patient Problems: Problems Problem Status Onset Septic shock Acute
[2017-04-01] MEDS ORDERED: ENOXAPARIN 40 MG/0.4 ML SYR SC SCH (09:00)
--- NOTE | 2017-04-01 10:07 | SOAPPROG ---
SOAP Progress Note Assessment/Plan: Assessment: 1) Metastatic pancreatic cancer 2) Indwelling biliary stent 3) Cholecystitis, s/p cholecystectomy 4) Klebsiella bacteremia 5) Chemotherapy induced anemia Plan: Christina's neutropenia has resolved, and G-CSF was stopped on 03/30. She underwent a CCY and is doing well , tolerating po Now on Ampicillin/Sulbactam. Her next chemotherapy treatment is due next week. This will need to be delayed in light of recent events. Her anemia is minimally symptomatic. She does not require transfusion support currently. I think she could go home today and follow up with us next week 04/01/17 09:59 Subjective: Feels ok tolerating po Objective: Vital Signs Temp Pulse Resp BP Pulse Ox 98.2 F 81 18 101/68 93 04/01/17 07:33 04/01/17 07:33 04/01/17 07:33 04/01/17 07:33 04/01/17 07:33 Microbiology 03/29/17 03:31 Urine Culture - Final Urine,Clean Catch Laboratory Results 03/31/17 05:00 03/31/17 05:00 03/31/17 04/01/17 04/02/17 05:59 05:59 05:59 Intake Total 2059 Output Total 4280 350 Balance -2221 -350 PT 15.9 SEC (12.0-15.0) H 03/30/17 09:20 INR 1.27 (0.83-1.16) H 03/30/17 09:20 ICD10 Worksheet Patient Problems: Problems Problem Status Onset Septic shock Acute
[2017-04-01 12:08] VITALS: BP 102/73; PULSE 90; TEMP 98; O2SAT 96
--- NOTE | 2017-04-01 12:43 | PDDCSUM ---
Discharge Summary Discharge Summary: Date of Admission: March 28, 2017 Date of Discharge: April 01, 2017 Discharge Diagnoses: Stage IV pancreatic cancer with metastases to liver Biliary obstruction, status post biliary stent Septic shock with Klebsiella bacteremia, resolved Acute cholecystitis, status post laparoscopic cholecystectomy Anemia, secondary to chemotherapy Admission Diagnoses: Sepsis Possible Cholangitis Neutropenia Metastatic pancreatic cancer Possible PE Hypotension Thrombocytopenia Consultants: Infectious Disease-Dr. M[facility] surgery-Dr. Clara Robles Oncology-Dr. Zoran Cervantes GI-Dr. Gal Buckley Critical Care- [facility] Hospital Course: Patient is a 51-year-old female with past medical history of metastatic pancreatic cancer and biliary stent who was admitted for septic shock. She she initially had developed rigors and was later found on the ground by her . She was fount to be severely neutropenic on admission with ANC 350. Patient was given Zosyn and IV fluid resuscitation and pressors in the ICU. She was given G-CSF to boost immune system. She improved rapidly with medical treatment. Blood cultures grew Klebsiella pneumoniae and her antibiotic was switched to Unasyn. Abdominal ultrasound revealed acalculous acute cholecystitis. Her liver function tests did not reflect biliary obstruction, although there was some concern as to whether the biliary stent was patent. She underwent laparoscopic gallbladder removal on 03/30/17. Postoperatively, she improved and was eating, drinking, and having bowel movements. She was discharged to home on 04/01/17 with instructions to follow up with her Oncologist. Physical Exam: General: The patient is a female who is alert and in no acute distress. Afebrile. HEENT: normocephalic, extraocular movements intact, conjunctivae clear, no lesions on face. Mucous membranes moist. CV: +S1/S2, RRR, no MRG. Resp: unlabored, CTAB no RRW. Abd: soft and nondistended. Recent surgical incisions appear to be healing with Steri-Strips in place which are clean dry and intact. Musculoskeletal: Normal muscle tone and bulk. Neuro: cranial nerves II XII grossly intact. Intact gross motor and sensory function. Psych: appropriate mood/affect. Skin: No pallor. No jaundice. Heme/lymph: +2 pitting edema bilateral lower legs up to mid tibia. Condition: Fair Discharged to: Home Pertinent tests/labs/imaging: Abdominal ultrasound-acute acalculous cholecystitis. WBC on admission 1.03, 12.52 on discharge Medications: Please see medication reconciliation form. Additionally, patient will be getting a course of levothyroxine 750 mg p.o. daily for 12 days-course ending on April 13, 2017. Special instructions: Patient instructed to return to the hospital if she has any concerning symptoms such as severe weakness, confusion, difficulty urinating , or severe pain. Follow up: Follow up with oncologist within the next week. Follow up with General Surgery in 2 weeks. ___ This patient is new to me. Reviewed patient's chart/records for this visit. Greater than 30 minutes of total time was spent on counseling and coordination of care for this patient's discharge.
--- NOTE | 2017-04-01 17:53 | SOAPPROG ---
CECE Progress Note Assessment/Plan: Assessment: CONSULT FOR POSSIBLE CHOLECYSTECTOMY ON 51-YEAR-OLD FEMALE WITH METASTATIC PANCREATIC CANCER ON CHEMOTHERAPY. HIDA SCAN IS NON VIS OF HER GALLBLADDER BUT SHE HAS A STENT IN PLACE. SHE WAS ADMITTED FOR SEPSIS AND HAS RESPONDED WELL TO ANTIBIOTICS. SHE WAS QUITE NEUTROPENIC BUT WITH MEDICATION HER WBC IS NOW 6000 LFTS ARE REASONABLY NORMAL. ABDOMEN IS SOFT SLIGHTLY DISTENDED WITH MILD RIGHT UPPER QUADRANT TENDERNESS ULTRASOUND SHOWED NO STONES BUT A THICKENED GALLBLADDER WALL AND NONDILATED DUCTS IMPRESSION: DIFFICULT TO TELL WHETHER THIS IS TRUE CHOLECYSTITIS IN THE FACE OF CHEMOTHERAPY NEUTROPENIA FOR TREATMENT OF PANCREATIC CANCER. HIDA SCANS ARE NOT RELIABLE IN THE FACE OF A PANCREATIC STENT WHICH PREVENTS FILLING OF THE GALLBLADDER AND SOME INSTANCES. LFTS ARE MINIMALLY ELEVATED FOR CHOLANGITIS HOWEVER. WITH STILL CONSIDER CHOLECYSTECTOMY IF SHE CONTINUES WITH RIGHT UPPER QUADRANT DISCOMFORT AND HER MEDICAL SITUATION IS STABLE ENOUGH FOR SURGERY Plan: RE-EVALUATE IN THE MORNING/CHECK WBC/FOLLOW-UP LFTS/CONSIDER LAP CHOLY/ RISKS AND OPTIONS BEEN FULLY DISCUSSED THE PATIENT AND HER FATHER 03/29/17 18:24 03/30/17 18:24 feeling betteR/ LFTs OK AFEBRILE/ OFF PRESSORS/ COAGS OK/ WILL PROCEED WITH LAP CHOLEY AND GRAMS/ RISKS AND OPTIONS FULLY DISCUSSED INCLUDING FAILURE TO RESOLVE PEOBLEM AND SHE WISHES TO PROCEED 04/01/17 17:52 DOING WELL STATUS POST LAP CHOLY/WOUND OKAY/AFEBRILE/NONICTERIC/EATING HOME TODAY AND FOLLOW UP IN THE OFFICE NEXT WEEK Objective: Vital Signs Temp Pulse Resp BP Pulse Ox 36.6 C 90 18 102/73 96 04/01/17 12:00 04/01/17 12:00 04/01/17 12:00 04/01/17 12:00 04/01/17 12:00 Laboratory Results 03/31/17 05:00 03/31/17 05:00 03/31/17 04/01/17 04/02/17 05:59 05:59 05:59 Intake Total 2059 Output Total 4280 350 Balance -2221 -350 PT 15.9 SEC (12.0-15.0) H 03/30/17 09:20 INR 1.27 (0.83-1.16) H 03/30/17 09:20 ICD10 Worksheet Patient Problems: Problems Problem Status Onset Septic shock Acute
== END 2017-04-01 15:32 | disposition home or self-care (01) | DRG 853 ==
LOC: EDUNIT# → OBSVTOIN 09:51 → F2N 11:36 → F1N 03-31 17:16
PROVIDERS: ADMIT Internal Medicine; ATTEND Internal Medicine
PROC: 0FT44ZZ Resection of Gallbladder, Percutaneous Endoscopic Approach (ICD-10-PCS; principal; 2017-03-30 14:15)
DX: A41.89 Other specified sepsis (principal); R65.21 Severe sepsis with septic shock; C25.9 Malignant neoplasm of pancreas, unspecified; C78.7 Secondary malignant neoplasm of liver and intrahepatic bile duct; K81.0 Acute cholecystitis; B96.1 Klebsiella pneumoniae [K. pneumoniae] as the cause of diseases classified elsewhere; D64.81 Anemia due to antineoplastic chemotherapy
CPT/HCPCS: 82947-QW; 96365; A9537; J0295; J0610; J1100; J1170; J1642; J1650; J1956; J2370; J2405; J2543; J2704; J3010; J3370; Q5101-ZA; Q9961

== ENCOUNTER → 2017-05-11 | Outpatient (CLI) | payer BC ==
[~2017-05-11] MED LIST: GADOBUTROL 10 ML VIAL IVP ONE
== END ==
LOC: FIMAGING 07:57
PROVIDERS: ATTEND Internal Medicine Hematology & Oncology
DX: K76.0 Fatty (change of) liver, not elsewhere classified (principal); C25.9 Malignant neoplasm of pancreas, unspecified; Z90.89 Acquired absence of other organs
CPT/HCPCS: A9585; J1642

== ENCOUNTER → 2017-05-25 | Outpatient (CLI) | payer BC | LOC: FIMAGING 07:48 | PROVIDERS: ATTEND Internal Medicine Hematology & Oncology | DX: M54.9 Dorsalgia, unspecified (principal); C25.9 Malignant neoplasm of pancreas, unspecified | CPT/HCPCS: A9585; J1642 ==

== ENCOUNTER 2017-07-09 09:36 | Emergency (ER) | payer BC ==
--- NOTE | 2017-07-09 09:50 | EDPHY ---
H & P Time Seen by Provider: 07/09/17 09:46 HPI/ROS: CHIEF COMPLAINT: Left leg swelling HISTORY OF PRESENT ILLNESS: 51-year-old woman with pancreatic cancer had a CT abdomen and pelvis on July 04 of this year. She has the report from [facility] which states a "occlusion of the left common iliac vein with probable thrombosis of the left common/external iliac vein. " The patient presents with leg swelling the on the left side for the last 2 days. This is mild and not associated with changes in motor or sensory of the foot or chest pain or shortness of breath. Not better worse with anything. REVIEW OF SYSTEMS: Eye: no change in vision ENT: no sore throat Cardiac: no chest pain or syncope Pulmonary: no cough or SOB Abdomen: Patient has some ongoing abdominal pain which is unchanged. Musculoskeletal: HPI Skin: Left leg is slightly redder Neuro: no headache Constitutional: no fever : no urinary symptoms A comprehensive 10 point review of systems is otherwise negative aside from elements mentioned in the history of present illness. PAST MEDICAL HISTORY: Includes cholecystectomy and pancreatic cancer Social history: Plans to travel out of the [facility] next week General Appearance: Alert and conversant, cooperative. Eyes: No scleral icterus. ENT, Mouth: Normal mucous membranes. Respiratory: Normal respiratory effort, breath sounds equal, lungs are clear to auscultation. Cardiovascular: Regular rate and rhythm. Gastrointestinal: Abdomen is soft and non tender. Neurological: Alert, face symmetric, normal motor in extremities. Slightly decreased sensation in both feet to light touch which is chronic from her neuropathy and not changed from usual. Skin: Left leg is slightly more erythematous than the right but not warm to the touch and not tender to palpation. Musculoskeletal: Left leg has 1+ edema from the knee down to the foot. Compartments are soft Psychiatric: Not agitated. Emergency Department course/MDM: Plan for ultrasound of the left leg. The patient does not have clinical evidence of pulmonary embolism or cellulitis or compartment syndrome. 1051: Normal ultrasound with no DVT per Grayson. 1102: Dr. Clay. Grayson reviewed CT feels US is false negative and CT definitely shows thrombosed deep vein. BID Lovenox was recommended by Dr. Clay, not oral agents, discussed with patient and consented. Smoking Status: Never smoked Constitutional: Initial Vital Signs Temperature (C) 37 C 07/09/17 09:43 Heart Rate 102 H 07/09/17 09:43 Respiratory Rate 18 07/09/17 09:43 Blood Pressure 98/64 L 07/09/17 09:43 O2 Sat (%) 98 07/09/17 09:43 O2 Delivery Mode Room Air Allergies/Adverse Reactions: No Known Drug Allergies Allergy (Verified 07/09/17 09:41) Home Medications: Medication Instructions Recorded Aspirin [Aspirin 81mg (*)] 81 mg PO DAILY 03/28/17 Cholecalciferol Vit D3 [Vitamin D3 5,000 units PO DAILY 03/28/17 (*)] Dexamethasone [Decadron 4 MG (*)] 4 mg PO BID 03/28/17 Diphenoxylate HCl/Atrop Sulf 1 tab PO QID PRN 03/28/17 [Lomotil Tab (*)] Docusate Sodium [Colace 100 MG (*)] 100 mg PO DAILY PRN 03/28/17 Gabapentin [Neurontin 300 MG (*)] 300 mg PO TID 03/28/17 Granisetron [Sancuso] 1 each TD Q7D 03/28/17 LORazepam [Ativan (*)] 0.5 mg PO HS 03/28/17 LORazepam [Ativan (*)] 0.5 mg PO Q6-8PRN PRN 03/28/17 Lipase/Protease/Amylase [Katie Engel 2 each PO QID 03/28/17 36,000 Units Capsule] Lipase/Protease/Amylase [Katie Engel 3 each PO TIDMEAL 03/28/17 36,000 Units Capsule] Loperamide HCl [IMODIUM A-D] 5 ml PO DAILY PRN 03/28/17 Magic Mouth Wash 10 ml PO QID 03/28/17 Nystatin Susp [Mycostatin Oral 5 ml PO QID 03/28/17 Liquid] Prochlorperazine Maleate 10 mg PO Q6HRS PRN 03/28/17 [Compazine 10mg (*)] morphINE SR [Ms Contin/Oramorph 15 15 mg PO BID 03/28/17 mg (*)] oxyCODONE IR [Oxycodone Ir (*)] 5 mg PO DAILY PRN 03/28/17 levOFLOXACIN [Levofloxacin] 750 mg PO DAILY #12 tablet 04/01/17 Enoxaparin [Lovenox 60 MG (*)] 60 mg SQ 1000,2200 #14 syr 07/09/17 Medical Decision Making - Diagnostics Imaging Results: Imaging Impressions Extremity Venous Study 07/09/17 10:02 Impression: No evidence of deep vein thrombosis in the left lower extremity or pelvis. Results called and discussed with RICARDO COSTELLO at 07/09/2017 10:50 Differential Diagnosis: Differential for leg swelling considered including but not limited to DVT, compartment syndrome, fracture, cellulitis or infection - Data Points Medications Given: Discontinued Medications Enoxaparin Sodium (Lovenox) 60 mg SC EDNOW ONE Stop: 07/09/17 11:11 Last Admin: 07/09/17 11:33 Dose: 60 mg Departure - Departure Disposition: Home, Routine, Self-Care Clinical Impression: Deep vein thrombosis (DVT) of iliac vein of left lower extremity Qualifiers: Chronicity: acute Qualified Code(s): I82.422 - Acute embolism and thrombosis of left iliac vein Condition: Good Instructions: Deep Vein Thrombosis (ED) Additional Instructions: Seek emergency care right away if you get chest pain or fever or trouble breathing. Referrals: Yisel Clay MD [Medical Doctor] - As per Instructions Zoran Birch MD [Medical Doctor] - As per Instructions (See your oncologist within a week you return from [place], to discuss further anticoagulation.) Prescriptions: Enoxaparin [Lovenox 60 MG (*)] 60 mg SQ 1000,2200 #14 syr
[2017-07-09] MEDS ORDERED: ENOXAPARIN 60 MG/0.6 ML SYR SC ONE (11:10)
[2017-07-09 11:31] VITALS: BP 92/59; PULSE 81; RESP 16; TEMP 98.1; O2SAT 99
== END 2017-07-09 11:40 | disposition home or self-care (01) ==
DX: I82.422 Acute embolism and thrombosis of left iliac vein (principal); Z79.82 Long term (current) use of aspirin; Z85.07 Personal history of malignant neoplasm of pancreas
CPT/HCPCS: J1650

== ENCOUNTER 2017-07-28 09:20 | Outpatient (CLI) | payer BC ==
[2017-07-28] MEDS ORDERED: DEXAMETHASONE SOD PHOSPHATE IV ONE (09:45)
[2017-07-28] MEDS ORDERED: NS IV ONE ×3 (09:45→11:30)
[2017-07-28] MEDS ORDERED: D5W IV ONE (10:00)
[2017-07-28] MEDS ORDERED: PALONOSETRON HCL 0.25 MG/5 ML VIAL IVP ONE (10:00)
[2017-07-28] MEDS ORDERED: FOSAPREPITANT IV ONE (10:00)
[2017-07-28 10:06] VITALS: BP 97/62; PULSE 103; RESP 17; TEMP 98.5; O2SAT 95
[2017-07-28] MEDS ORDERED: PACLITAXEL PROTEIN BOUND IV ONE (11:00)
[2017-07-28] MEDS ORDERED: GEMCITABINE HCL IV ONE (11:30)
== END 2017-07-28 13:54 | disposition home or self-care (01) ==
LOC: F1NOP 09:20
DX: C25.9 Malignant neoplasm of pancreas, unspecified (principal)
CPT/HCPCS: J1100; J1453; J1642; J2469; J9201; J9264

== ENCOUNTER → 2017-08-17 | Outpatient (CLI) | payer BC ==
[~2017-08-17] MED LIST changes: -GADOBUTROL 10 ML VIAL IVP ONE; +LIDOCAINE 1% 300 MG/30 ML SDV ONE
== END ==
LOC: FIMAGING 07:46
PROVIDERS: ATTEND Internal Medicine Hematology & Oncology
PROC: 0W9F3ZZ Drainage of Abdominal Wall, Percutaneous Approach (ICD-10-PCS; principal; 2017-08-17)
DX: R18.8 Other ascites (principal); C25.9 Malignant neoplasm of pancreas, unspecified

== ENCOUNTER → 2017-08-29 | Outpatient (CLI) | payer BC | LOC: FIMAGING 09:31 | PROVIDERS: ATTEND Internal Medicine Hematology & Oncology | PROC: 0W9F3ZZ Drainage of Abdominal Wall, Percutaneous Approach (ICD-10-PCS; principal; 2017-08-29) | DX: R18.0 Malignant ascites (principal); C25.9 Malignant neoplasm of pancreas, unspecified ==

== ENCOUNTER → 2017-09-08 | Outpatient (CLI) | payer BC | LOC: FIMAGING 12:04 | PROVIDERS: ATTEND Internal Medicine Hematology & Oncology | PROC: 0W9F30Z Drainage of Abdominal Wall with Drainage Device, Percutaneous Approach (ICD-10-PCS; principal; 2017-09-08) | DX: R18.8 Other ascites (principal); C25.9 Malignant neoplasm of pancreas, unspecified ==

== ENCOUNTER → 2017-09-18 | Outpatient (CLI) | payer BC ==
--- NOTE | 2017-09-18 14:14 | PDRADPN ---
Radiology Procedure Note Date of Procedure: 09/18/17 Radiologist: Tom Riley Anesthesia: Local (Specify) Pre-op Diagnosis: ASCITES Post-op Diagnosis: SAME Indication: therapeutic Procedure: paracentesis Finding(s): RLQ access, yellow colored Inf/Abcess present in the surg proc area at time of surgery?: No Depth: Organ Space EBL: Minimal Complications: none
== END ==
LOC: FIMAGING 12:25
PROVIDERS: ATTEND Internal Medicine Hematology & Oncology
PROC: 0W9F3ZZ Drainage of Abdominal Wall, Percutaneous Approach (ICD-10-PCS; principal; 2017-09-18)
DX: R18.8 Other ascites (principal)

== ENCOUNTER → 2017-09-26 | Outpatient (CLI) | payer BC ==
[~2017-09-26] MED LIST changes: +LIDO/EPI 1% **for epidural** 30 ML SDV ONE
== END ==
LOC: FIMAGING 11:38
PROVIDERS: ATTEND Internal Medicine Hematology & Oncology
PROC: 0W9G3ZZ Drainage of Peritoneal Cavity, Percutaneous Approach (ICD-10-PCS; principal; 2017-09-26)
DX: C25.0 Malignant neoplasm of head of pancreas (principal); R18.0 Malignant ascites

== ENCOUNTER → 2017-10-06 | Outpatient (CLI) | payer BC ==
[~2017-10-06] MED LIST changes: -LIDO/EPI 1% **for epidural** 30 ML SDV ONE
--- NOTE | 2017-10-06 12:52 | PDRADPN ---
Radiology Procedure Note Date of Procedure: 10/06/17 Radiologist: Tom Riley Anesthesia: Local (Specify) Pre-op Diagnosis: malignant ascites Post-op Diagnosis: same Indication: therapeutic Procedure: paracentesis Finding(s): RLQ 6F Yueh access with return of clear yellow ascites Inf/Abcess present in the surg proc area at time of surgery?: No
== END ==
LOC: FIMAGING 12:03
PROVIDERS: ATTEND Internal Medicine Hematology & Oncology
PROC: 0W9F3ZZ Drainage of Abdominal Wall, Percutaneous Approach (ICD-10-PCS; principal; 2017-10-06)
DX: R18.0 Malignant ascites (principal)

== ENCOUNTER → 2017-10-13 | Outpatient (CLI) | payer BC ==
[~2017-10-13] MED LIST changes: +ALBUMIN 25% 100 ML SOLN IV ONE
== END ==
LOC: FIMAGING 13:46
PROVIDERS: ATTEND Internal Medicine Hematology & Oncology
PROC: 0W9F3ZZ Drainage of Abdominal Wall, Percutaneous Approach (ICD-10-PCS; principal; 2017-10-13)
DX: R18.0 Malignant ascites (principal)
CPT/HCPCS: J1642; P9047

== ENCOUNTER 2017-10-16 12:38 | Observation (INO) | payer BC ==
[2017-10-16] MEDS ORDERED: HEPARIN 10,000 UNIT/10 ML MDV (1,000 UNIT/ML) IVP PRN (12:49)
[2017-10-16] MEDS ORDERED: NS 1,000 ML IV SCH (13:00)
--- NOTE | 2017-10-16 14:20 | PDANEPAE ---
ANE History of Present Illness BL nephrostomy tubes. Ureter obstruction ANE Past Medical History - Cardiovascular History Hx Hypertension: No Hx Arrhythmias: No Hx Chest Pain: No Hx Coronary Artery / Peripheral Vascular Disease: No Hx CHF / Valvular Disease: No Hx Palpitations: No - Pulmonary History Hx COPD: No Hx Asthma/Reactive Airway Disease: No Hx Recent Upper Respiratory Infection: No Hx Oxygen in Use at Home: No Hx Sleep Apnea: No - Endocrine History Hx Diabetes: No - Renal History Hx Renal Disorders: No - Liver History Hepatic History Comment: Slightly elevated liver enzymes - Neurological & Psychiatric Hx Hx Neurological and Psychiatric Disorders: Yes Neurological / Psychiatric History Comment: 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 - GI History Hx Gastrointestinal Disorders: No - Chronic Pain History Chronic Pain: No ANE Review of Systems Review of Systems: - Exercise capacity METS (RN): 3 METS - Systems Constitutional: Reports: weight loss Cardiac: Reports: no symptoms Respiratory: Reports: shortness of breath Gastrointestinal: Reports: diarrhea ANE Patient History - Allergies Allergies/Adverse Reactions: No Known Drug Allergies Allergy (Verified 10/16/17 14:06) - Home Medications Home Medications: Aspirin [Aspirin 81mg (*)] 81 mg PO DAILY PRN 03/28/17 [Last Taken 03/27/17] Cholecalciferol Vit D3 [Vitamin D3 (*)] 5,000 units PO DAILY 03/28/17 [Last Taken 03/27/17] Dexamethasone [Decadron 4 MG (*)] 4 mg PO BID 03/28/17 [Last Taken 03/27/17] Diphenoxylate HCl/Atrop Sulf [Lomotil Tab (*)] 1 tab PO QID PRN 03/28/17 [Last Taken Unknown] Docusate Sodium [Colace 100 MG (*)] 100 mg PO DAILY PRN 03/28/17 [Last Taken ] Gabapentin [Neurontin 300 MG (*)] 300 mg PO TID 03/28/17 [Last Taken 03/27/17] Granisetron [Sancuso] 1 each TD Q7D PRN 03/28/17 [Last Taken 03/14/17] LORazepam [Ativan (*)] 0.5 mg PO HS 03/28/17 [Last Taken 03/27/17] LORazepam [Ativan (*)] 0.5 mg PO Q6-8PRN PRN 03/28/17 [Last Taken Unknown] Lipase/Protease/Amylase [Katie Engel 36,000 Units Capsule] 2 each PO QID PRN [Last Taken 03/27/17] Lipase/Protease/Amylase [Katie Engel 36,000 Units Capsule] 3 each PO TIDMEAL [Last Taken 03/27/17] Loperamide HCl [IMODIUM A-D] 5 ml PO DAILY PRN 03/28/17 [Last Taken Unknown] Magic Mouth Wash 10 ml PO QID PRN 03/28/17 [Last Taken 03/21/17] Nystatin Susp [Mycostatin Oral Liquid] 5 ml PO QID PRN 03/28/17 [Last Taken ] Prochlorperazine Maleate [Compazine 10mg (*)] 10 mg PO Q6HRS PRN 03/28/17 [Last Taken Unknown] morphINE SR [Ms Contin/Oramorph 15 mg (*)] 105 mg PO BID 03/28/17 [Last Taken 21:00] oxyCODONE IR [Oxycodone Ir (*)] 5 mg PO DAILY PRN 03/28/17 [Last Taken 03/27/17 21:00] Enoxaparin [Lovenox 60 MG (*)] 120 mg SQ DAILY 10/12/17 [Last Taken Unknown] levOFLOXACIN [Levofloxacin] 750 mg PO PRN 10/12/17 [Last Taken Unknown] - NPO status NPO Status: no food or drink >8 hours - Anes Hx Anes Hx: no prior problems - Smoking Hx Smoking Status: Never smoked ANE Labs/Vital Signs - Vital Signs Blood Pressure: 90/57 Heart Rate: 99 Respiratory Rate: 18 O2 Sat (%): 98 ANE Physical Exam - Airway Neck exam: decreased ROM Mallampati Score: Class 2 Mouth exam: small mouth opening - Pulmonary Pulmonary: no respiratory distress - Cardiovascular Cardiovascular: regular rate and rhythym, tachycardia - ASA Status ASA Status: III ANE Anesthesia Plan Anesthesia Plan: general endotracheal anesthesia Specialized Airway: video laryngoscope
[2017-10-16] MEDS ORDERED: MIDAZOLAM 2 MG/2 ML VIAL IVP ONE (14:23)
[2017-10-16] MEDS ORDERED: fentaNYL 250 MCG/5 ML INJ ONE (14:55)
[2017-10-16] MEDS ORDERED: fentaNYL 100 MCG/2 ML INJ ONE (14:55)
[2017-10-16] MEDS ORDERED: PROPOFOL/EMULSION 500 MG/50 ML BOTTLE IV ONE (14:55)
[2017-10-16] MEDS ORDERED: LIDOCAINE 1% 300 MG/30 ML SDV ONE (14:56)
[2017-10-16] MEDS ORDERED: ROCURONIUM 50 MG/5 ML VIAL ONE (14:58)
[2017-10-16] MEDS ORDERED: DEXAMETHASONE 4 MG/ML VIAL ONE (14:59)
--- NOTE | 2017-10-16 14:59 | PDGENHP ---
History & Physical Chief Complaint: CANCER, BILATERAL URETERAL OBSTRUCTION History of Present Illness: pancreatic cancer with obstruction Pertinent Past, Social, Family History: biliary stents, port placement, liver bx. Relevant Physical Exam: end stage pancreatic cancer Cardiorespiratory Assessment: rrr,cta
[2017-10-16] MEDS ORDERED: ONDANSETRON 4 MG/2 ML VIAL ONE (16:40)
[2017-10-16] MEDS ORDERED: GLYCOPYRROLATE 0.2 MG/1 ML VIAL ONE ×2 (17:28)
[2017-10-16] MEDS ORDERED: NEOSTIGMINE METHYLSULFATE 3 MG/3 ML SYR ONE (17:28)
[2017-10-16] MEDS ORDERED: IOPAMIDOL (ISOVUE-300) 100 ML BTL ONE (17:39)
--- NOTE | 2017-10-16 17:40 | PDRADPN ---
Radiology Procedure Note Date of Procedure: 10/16/17 Radiologist: Delma John Anesthesia: GET(General Endotracheal) Pre-op Diagnosis: PANCREATIC CA Post-op Diagnosis: SAME Indication: BILATERAL URETERAL OBSTRUCTION Procedure: BILATERAL URETERAL STENT PLACEMENT; LT PERC NEPH Finding(s): VERY LOW LYING BLADDER DUE TO LARGE PELVIC MASS. Inf/Abcess present in the surg proc area at time of surgery?: No EBL: Minimal Complications: NONE Drains: Nephrostomy (LT PERC NEPH, 8 FR. BILATERAL URETERAL STENTS, 8FR.)
[2017-10-16] MEDS ORDERED: HYDROmorphONE/DILAUDID 2 MG/ML INJ ONE (17:41)
[2017-10-16] MEDS ORDERED: HYDROmorphONE/DILAUDID 1 MG/ML INJ IVP PRN (17:56)
[2017-10-16] MEDS ORDERED: PROMETHAZINE HCL 25 MG/ML INJ IVP PRN (17:56)
[2017-10-16] MEDS ORDERED: NALOXONE HCL 0.4 MG/ML INJ IVP PRN (17:56)
[2017-10-16] MEDS ORDERED: fentaNYL 100 MCG/2 ML INJ IVP PRN (17:56)
[2017-10-16] MEDS ORDERED: DIAZEPAM 5 MG/ML 1 ML SYR ONE ×2 (18:05→19:29)
[2017-10-16] MEDS: DIAZEPAM 5 MG/ML 1 ML SYR IVP PRN ×2 (18:08→18:26)
--- NOTE | 2017-10-16 18:53 | SOAPPROG ---
SOAP Progress Note Assessment/Plan: Assessment: PELVIC PAIN POST BILATERAL URETERAL STENT AND LT PERC NEPH PLACEMENT: LIKELY DUE TO SPASM AROUND STENTS. PATIENT HAS A VERY SMALL BLADDER CAPACITY DUE TO LARGE PELVIC TUMOR. HEMATURIA FROM TODAY'S PROCEDURE. NO SIGNS OF SEPSIS/BACTEREMIA AT THIS POINT. ON HIGH DOSES OF PAIN MEDS OUTPATIENT. Plan: 1. ADMIT TO 1N FOR PAIN CONTROL. 2. CONSULT HOSPITALIST SERVICE--CALLED DR. COTTER 3. MAY NEED TO GET UROLOGY INVOLVED FOR FUTURE STENT CHANGE IF PATIENT TOLERATES STENTS 4. IF UNABLE TO TOLERATE STENTS, CAN PULL STENTS WITH/WITHOUT PLACEMENT OF RT PERC NEPH. 10/16/17 18:50 Subjective: PATIENT IS HAVING SIGNIFICANT PELVIC PAIN. NO N/V. MINIMAL FLANK PAIN. Objective: Vital Signs Temp Pulse Resp BP Pulse Ox 36.9 C 99 15 94/63 L 100 10/16/17 18:15 10/16/17 14:23 10/16/17 18:45 10/16/17 18:45 10/16/17 18:45 DRESSINGS CLEAN. ICD10 Worksheet Patient Problems: Problems Problem Status Onset Bilateral ureteral obstruction Acute Pancreatic cancer Acute Septic shock Acute
[2017-10-16] MEDS ORDERED: ONDANSETRON 4 MG/2 ML VIAL IVP PRN (22:03)
[2017-10-16] MEDS ORDERED: ACETAMINOPHEN 325 MG TAB PO PRN (22:03)
[2017-10-16] MEDS ORDERED: ONDANSETRON DISINTEGRATING 4 MG TAB PO PRN (22:03)
[2017-10-16] MEDS ORDERED: oxyCODONE IR 5 MG TAB PO PRN (23:53)
[2017-10-16] MEDS ORDERED: LIPASE 24,000/AMYLASE/PROTEASE (CREON) 1 CAP PO PRN (23:53)
[2017-10-16] MEDS ORDERED: LORazepam 0.5 MG TAB PO PRN (23:53)
--- NOTE | 2017-10-16 23:54 | PDGENHP ---
History and Physical - Chief Complaint Pelvic pain - History of Present Illness 52 yo F w/ advanced pancreatic CA presenting for planned ureteral stent placement. Patient has known bilateral ureteral obstruction from advanced pancreatic CA. She underwent bilateral ureteral stent placement and Lt perc neph with Dr. John today. She was subsequently admitted for pain control. At the time of my evaluation patient is comfortable with no pain complaints. History Information - Allergies/Home Medication List Allergies/Adverse Reactions: No Known Drug Allergies Allergy (Verified 10/16/17 14:06) Home Medications: Cholecalciferol Vit D3 [Vitamin D3 (*)] 5,000 units PO DAILY 03/28/17 [Last Taken 10/16/17] Diphenoxylate HCl/Atrop Sulf [Lomotil Tab (*)] 1 tab PO QID PRN 03/28/17 [Last Taken Unknown] Docusate Sodium [Colace 100 MG (*)] 100 mg PO DAILY PRN 03/28/17 [Last Taken ] Gabapentin [Neurontin 300 MG (*)] 300 mg PO TID 03/28/17 [Last Taken 10/16/17] Granisetron [Sancuso] 1 each TD Q7D PRN 03/28/17 [Last Taken 03/14/17] LORazepam [Ativan (*)] 0.5 mg PO HS 03/28/17 [Last Taken 10/16/17] LORazepam [Ativan (*)] 0.5 mg PO Q6-8PRN PRN 03/28/17 [Last Taken 10/16/17] Lipase/Protease/Amylase [Katie Engel 36,000 Units Capsule] 2 each PO QID PRN [Last Taken 10/15/17] Lipase/Protease/Amylase [Katie Engel 36,000 Units Capsule] 4 each PO TIDMEAL [Last Taken 10/15/17] Loperamide HCl [IMODIUM A-D] 5 ml PO DAILY PRN 03/28/17 [Last Taken 10/09/17] Prochlorperazine Maleate [Compazine 10mg (*)] 10 mg PO Q6HRS PRN 03/28/17 [Last Taken Unknown] morphINE SR [Ms Contin/Oramorph 15 mg (*)] 105 mg PO BID 03/28/17 [Last Taken ] oxyCODONE IR [Oxycodone Ir (*)] 5 mg PO DAILY PRN 03/28/17 [Last Taken 10/16/17] Enoxaparin [Lovenox 100 MG (*)] 100 mg SQ DAILY 10/16/17 [Last Taken 10/15/17] Gemcitabine HCl 1 unit IV AD 10/16/17 [Last Taken 10/16/17] I have personally reviewed and updated: family history, medical history - Past Medical History cancer - Surgical History Additional surgical history: Bilateral ureteral stents 10/16/17, L perc neph - Family History Positive for: cancer - Social History Smoking Status: Never smoked Review of Systems Review of Systems: ROS: 10pt was reviewed & negative except for what was stated in HPI & below Physical Exam Physical Exam: Temp Pulse Resp BP Pulse Ox 36.4 C 87 16 91/60 L 97 10/16/17 21:19 10/16/17 23:22 10/16/17 23:22 10/16/17 23:22 10/16/17 23:22 O2 (L/minute) 2 Constitutional: not in pain, chronically ill appearing Eyes: PERRL, EOMI Ears, Nose, Mouth, Throat: moist mucous membranes, no oral mucosal ulcers Cardiovascular: regular rate and rhythym, no murmur, rub, or gallop Respiratory: no respiratory distress, clear to auscultation Gastrointestinal: normoactive bowel sounds, tenderness (Mild, moose-umbilical) Skin: warm, normal color Neurologic: AAOx3, CN II-XII Intact Psychiatric: interacting appropriately, not anxious Lab Data & Imaging Review Imaging Review: Imaging Impressions Nephrostomy 10/16/17 00:00 Impression: 1. Bilateral percutaneous access obtained. 2. Bilateral double-J ureteral stent advanced. 3. Very low-lying and decompressed bladder, due to a large pelvic mass. 4. Intravesical placement of the stents confirmed, as above detailed. 5. Left percutaneous nephrostomy tube left in place for flushing purposes to clear hematuria. 6. Dark brown urine obtained from the left side only. Clear urine from the right side. Both are sent for Gram stain and culture in separate syringes. 7. Moderate amount of pelvic pain when the patient woke up, likely due to bladder spasm, with presence of two 8-[place] pigtail stents in an already very small bladder cavity. The patient will be hospitalized for further pain management. Urology may need to be involved for discussion of future management of stents. The above are discussed with family in detail, as well as Dr. Lisa Velásquez, admitting hospitalist. Non-Vascular Stent Insertion 10/16/17 00:00 Impression: 1. Bilateral percutaneous access obtained. 2. Bilateral double-J ureteral stent advanced. 3. Very low-lying and decompressed bladder, due to a large pelvic mass. 4. Intravesical placement of the stents confirmed, as above detailed. 5. Left percutaneous nephrostomy tube left in place for flushing purposes to clear hematuria. 6. Dark brown urine obtained from the left side only. Clear urine from the right side. Both are sent for Gram stain and culture in separate syringes. 7. Moderate amount of pelvic pain when the patient woke up, likely due to bladder spasm, with presence of two 8-[place] pigtail stents in an already very small bladder cavity. The patient will be hospitalized for further pain management. Urology may need to be involved for discussion of future management of stents. The above are discussed with family in detail, as well as Dr. Lisa Velásquez, admitting hospitalist. Non-Vascular Stent Insertion 10/16/17 13:00 Impression: 1. Bilateral percutaneous access obtained. 2. Bilateral double-J ureteral stent advanced. 3. Very low-lying and decompressed bladder, due to a large pelvic mass. 4. Intravesical placement of the stents confirmed, as above detailed. 5. Left percutaneous nephrostomy tube left in place for flushing purposes to clear hematuria. 6. Dark brown urine obtained from the left side only. Clear urine from the right side. Both are sent for Gram stain and culture in separate syringes. 7. Moderate amount of pelvic pain when the patient woke up, likely due to bladder spasm, with presence of two 8-[place] pigtail stents in an already very small bladder cavity. The patient will be hospitalized for further pain management. Urology may need to be involved for discussion of future management of stents. The above are discussed with family in detail, as well as Dr. Lisa Velásquez, admitting hospitalist. Assessment & Plan Assessment: 52 yo F w/ advanced pancreatic CA admitted for pain control s/p bilateral ureteral stent placement. Plan: 1. Bilateral ureteral obstruction - S/p bilateral ureteral stent placement + L perc neph per Dr. John on 10/16. Patient is now resting comfortably. - Continue home pain medication regimen - S/p moose-operative CTX, cultures pending 2. Advanced pancreatic CA - Widely metastatic; currently undergoing clinical trial. Complicated acutely by above. - Continue morphine SR 105 mg BID +oxycodone PRN - Continue pancreatic enzymes 3. Anxiety - Lorazepam PRN 4. Hx LLE iliac DVT - Continue Lovenox. Diet - Regular Code - Full Ppx - LMWH Dispo - Admission status per Dr. John
[2017-10-17] MEDS ORDERED: LIPASE 24,000/AMYLASE/PROTEASE (CREON) 1 CAP PO SCH (08:00)
--- NOTE | 2017-10-17 08:13 | POSTANESTH ---
Post Anesthetic Evaluation Cardiovascular Status: Similar to Pre-Op Cond Respiratory Status: Similar to Pre-op Cond. Level of Consciousness/Mental Status: Can Participate in Eval Pain Control: Adequate, Prn Tx Ordered Nausea/Vomiting Control: Adequate, Prn Tx Ordered Complications Possibly Related to Anesthesia: None Noted
[2017-10-17 08:42] VITALS: BP 93/60
[2017-10-17] MEDS ORDERED: morphINE SR 15 MG TAB PO SCH (09:00)
[2017-10-17] MEDS ORDERED: ENOXAPARIN 100 MG/ML SYR SC SCH (09:00)
--- NOTE | 2017-10-17 09:31 | PDMN ---
Medical Necessity Medical necessity: M320 renal colic /stones: A-1 day bilateral obstruction, increasing Cr. : bilateral percutaneous renal access, bilateral double J ureteral stents placement, L perc. nephrostomy : pt high risk advanced pancreatic Ca. with bilateral ureteral obstruction.
--- NOTE | 2017-10-17 09:51 | SOAPPROG ---
SOAP Progress Note Assessment/Plan: Assessment: PELVIC PAIN POST BILATERAL URETERAL STENT AND LT PERC NEPH PLACEMENT: LIKELY DUE TO SPASM AROUND STENTS. PATIENT HAS A VERY SMALL BLADDER CAPACITY DUE TO LARGE PELVIC TUMOR. HEMATURIA FROM TODAY'S PROCEDURE. NO SIGNS OF SEPSIS/BACTEREMIA AT THIS POINT. ON HIGH DOSES OF PAIN MEDS OUTPATIENT. Plan: 1. ADMIT TO 1N FOR PAIN CONTROL. 2. CONSULT HOSPITALIST SERVICE--CALLED DR. COTTER 3. MAY NEED TO GET UROLOGY INVOLVED FOR FUTURE STENT CHANGE IF PATIENT TOLERATES STENTS 4. IF UNABLE TO TOLERATE STENTS, CAN PULL STENTS WITH/WITHOUT PLACEMENT OF RT PERC NEPH. 10/16/17 18:50 10/17/17 09:51 Doing much better. LT renal urine with 2+ poly but no organisms. Cx pending. OK to D/C from IR standpoint. Flush instructions and ppx given to . Nursing may need to teach flushing prior to D/C. 10/17/17 09:53 Patient has apt. with IR for LT perc neph check and pull this Monday. Subjective: Feels much better than yesterday. Pain well controlled on home pain meds. Has been urinating. Urine color "lightly pink." Objective: Vital Signs Temp Pulse Resp BP Pulse Ox 36.6 C 117 H 17 93/60 L 93 10/17/17 08:41 10/17/17 08:41 10/17/17 08:41 10/17/17 08:41 10/17/17 08:41 Microbiology 10/16/17 16:26 Gram Stain - Final Other - Aspirate 10/16/17 16:06 Gram Stain - Final Other - Aspirate Laboratory Results 10/17/17 06:00 10/17/17 06:00 10/16/17 10/17/17 10/18/17 05:59 05:59 05:59 Intake Total 1350 Output Total 330 Balance 1020 dressing moderately soaked. site otherwise without hematoma. drain without kink. ICD10 Worksheet Patient Problems: Problems Problem Status Onset Bilateral ureteral obstruction Acute Pancreatic cancer Acute Septic shock Acute
--- NOTE | 2017-10-17 17:12 | GDS ---
[f rep st] DISCHARGE SUMMARY DISCHARGE DIAGNOSES: Include: 1. Acute ureteral spasm. 2. Status post bilateral ureteral stents and left percutaneous nephrostomy placement. 3. Pancreatic cancer. 4. Bilateral ureteral obstruction secondary to suspected spasm around her stents. HISTORY OF PRESENT ILLNESS: This is a pleasant 52-year-old female with advanced pancreatic cancer, p resenting for ureteral stent placement. For details of the patient's initial presentation, please se e the history and physical dated 10/16/2017. CONSULTATIVE SERVICES: Include Interventional Radiology. PROCEDURES: Bilateral ureteral stent placement and a left-sided percutaneous nephrostomy tube. HOSPITAL COURSE: By issue: 1. Elective ureteral stent placement. There was suspicion the patient was spasming around the stent s. She had dose placed without complication by Dr. John and a left-sided percutaneous nephrostomy tub e placed with good urine. Patient is to flush her nephrostomy 4 times a day and follow in the radiol ogy clinic in 72 hours for stent removal. 2. Advanced pancreatic cancer. Patient is continued on her pain regimen and will follow with [facility]. PENDING STUDIES: At the time of this dictation include urine cultures, which are preliminary/no grow th to date. FOLLOWUP APPOINTMENTS: Include with Interventional Radiology on 10/20/2017, as well as with [facility] per her normal schedule. MEDICATIONS,: Please reference the med rec printed on 10/17/2017. TIME SPENT: I spent greater than 30 minutes in the planning and coordination of this discharge. /[id number]/MODL
== END 2017-10-17 12:05 | disposition home or self-care (01) ==
LOC: FIMAGING 12:38 → INTOOBSV 18:38 → F1N 18:38
PROVIDERS: ADMIT Radiology Diagnostic Radiology; ATTEND Radiology Diagnostic Radiology
DX: G89.18 Other acute postprocedural pain (principal); N13.5 Crossing vessel and stricture of ureter without hydronephrosis; C25.0 Malignant neoplasm of head of pancreas
CPT/HCPCS: 50694; 50695; C1729; C1769; C1892; G0378; J0696; J1100; J1170; J1642; J1644; J1650; J2250; J2270; J2405; J2704; J2710; J3010; J3360; Q9967

== ENCOUNTER → 2017-10-20 | Day surgery (SDC) | payer BC ==
[~2017-10-20] MED LIST changes: -ALBUMIN 25% 100 ML SOLN IV ONE; +IOPAMIDOL (ISOVUE-300) 100 ML BTL ONE; -LIDOCAINE 1% 300 MG/30 ML SDV ONE
== END | disposition home or self-care (01) ==
LOC: FIMAGING 08:51
PROVIDERS: ATTEND Radiology Diagnostic Radiology
PROC: BT1 Imaging, Urinary System, Fluoroscopy (ICD-10-PCS; principal; 2017-10-20)
PROC: 0TP5X0Z Removal of Drainage Device from Kidney, External Approach (ICD-10-PCS; principal; 2017-10-20)
DX: Z43.6 Encounter for attention to other artificial openings of urinary tract (principal); N13.8 Other obstructive and reflux uropathy; C25.9 Malignant neoplasm of pancreas, unspecified
CPT/HCPCS: 50389; 74425; C1769; Q9967